=== PATIENT | male | born 1965 | race Hispanic/Latino ===

== ENCOUNTER 2016-12-28 15:43 | Emergency (ER) | payer BC ==
--- NOTE | 2016-12-28 16:31 | Emergency Department Report ---
Stated Complaint: ABD PAIN Time Seen by Provider: 12/28/16 16:26 - [facility] History of Present Illness: Patient is a 51-year-old male with a history of heart disease status posts heart surgery 2 years ago on Plavix and baby aspirin who presents to ED complaining of left upper quadrant abdominal pain 2 weeks. Patient states pain started off intermittently and now is constant. Patient describes pain as a pressure type pain that feels weird. Patient says nothing makes it worse and nothing makes it better. Patient states sometimes feels the pain going through to his back he rates the pain about a 4-10. Patient states he had no recent trauma or injury. Patient denies fever/chills/nausea/vomiting/diarrhea/dysuria/blood in urine/ chest pain/shortness of breath. - ROS Review of Systems: As noted in HPI - Exam Physical Exam: GENERAL: Alert and oriented x3, no apparent distress, Normal Gait, atraumatic. NECK: Supple. Non edematous, No carotid bruits. No lymphadenopathy or thyromegaly. LUNGS: Symetrical with respiration, No wheezing, no rales or crackles, CTAB. HEART: S1, S2 present, regular rate and rhythm without murmur, no rubs, no gallops. ABDOMEN: No organomegaly was noted,Positive bowel sounds, soft, and non- distended. . Nontender to palpation on all Quadrants, NO CVA tenderness. Upon palpation of the left upper quadrant patient states he feels weird. MSE screening note: Focused history and physical exam performed. Due to findings the following was ordered: ED Disposition for MSE Condition: Stable
[2016-12-28 17:43] LABS: Bilirubin,Urine NEG (Negative); Blood,Urine NEG (Negative); Ketones,Urine NEG (Negative); Leukocyte Esterase,Urine NEG (Negative); Mucus,Urine FEW /HPF; Nitrite,Urine NEG (Negative); Protein,Urine <15 mg/dL mg/dL (Negative); Urobilinogen,Urine < 2.0 mg/dL (<2.0); WBC,Urine < 1.0 /HPF (0.0-6.0)
[2016-12-28 17:56] LABS: Basophils % (Auto) 0.5 % (0.0-1.8); Eosinophils % (Auto) 2.5 % (0.0-4.3); Hematocrit 45.2 % (35.5-45.6); Hemoglobin 15.7 gm/dl (11.8-15.2); Mean Corpuscular HGB Conc 35 % (32-34); Mean Corpuscular Hemoglobin 32 pg (28-32); Mean Corpuscular Volume 92 fl (84-94); Platelet Count 249 K/mm3 (140-440); Red Blood Count 4.95 M/mm3 (3.65-5.03); Red Cell Distribution Width 13.6 % (13.2-15.2); White Blood Count 11.3 K/mm3 (4.5-11.0)
--- NOTE | 2016-12-28 17:57 | Cat Scan Report ---
FINAL REPORT EXAM: CT ABDOMEN PELVIS WO CON HISTORY: abd pain TECHNIQUE: Spiral CT scanning of the abdomen and pelvis. No oral or IV contrast administered. Multiplanar reformations. PRIORS: None. FINDINGS: Abdomen: Examination limited due to lack of contrast administration. Visualized lung bases grossly unremarkable. No radiopaque gallstones. Liver grossly unremarkable. Spleen grossly unremarkable. Pancreas grossly unremarkable. Kidneys grossly unremarkable. Adrenal glands grossly unremarkable. Pelvis: Bowel grossly unremarkable, with mild diverticular change in the sigmoid colon. Appendix within normal limits. No significant free peritoneal fluid or loculated fluid collection. Abdominal aorta non-aneurysmal. Degenerative change in the lumbosacral spine. IMPRESSION: 1. No acute findings.
[2016-12-28 18:01] LABS: Alanine Aminotransferase 14 units/L (7-56); Albumin 4.1 g/dL (3.9-5); Albumin/Globulin Ratio 1.5 %; Alkaline Phosphatase 113 units/L (35-129); Anion Gap 16 mmol/L; BUN/Creatinine Ratio 12.22; Bilirubin,Total 0.3 mg/dL (0.1-1.2); Blood Urea Nitrogen 11 mg/dL (9-20); Calcium 10.3 mg/dL (8.4-10.2); Carbon Dioxide 27 mmol/L (22-30); Chloride 100.3 mmol/L (98-107); Glucose 92 mg/dL (75-100); Lipase 18 units/L (13-60); Potassium 4.6 mmol/L (3.6-5.0); Sodium 139 mmol/L (137-145); Total Protein 6.9 g/dL (6.3-8.2)
[2016-12-28 20:45] VITALS: BP 120/79
--- NOTE | 2016-12-28 22:23 | Emergency Department Report ---
ED Abdominal Pain HPI - General Chief Complaint: Abdominal Pain Stated Complaint: ABD PAIN Time Seen by Provider: 12/28/16 16:26 Source: patient Mode of arrival: Ambulatory Limitations: No Limitations - History of Present Illness Initial Comments: 51-year-old male with a past medical history of asthma, CAD with stent and bypass surgery presents to the hospital with complaints of left upper quadrant abdominal pain for greater than 1 month. Pain has been intermittent and feels like a pressure. Positive belching and gas associated with the pain. Symptoms worse for the past 2 days. No specific aggravating or alleviating factors reported. Patient denies nausea, vomiting, diarrhea, fever, melena, or hematochezia. Patient states it deathly feels different from his previous cardiac related chest pain. - Related Data Home Medications Medication Instructions Recorded Confirmed Last Taken Clopidogrel Bisulfate [Plavix] 75 mg PO QDAY 12/28/16 12/28/16 Unknown Previous Rx's Medication Instructions Recorded Last Taken Type Aspirin [Aspirin BABY CHEW TAB] 81 mg PO QDAY tab.chew 01/29/15 Unknown Rx Mag Hydrox/Al Hydrox/Simeth 20 ml PO QID PRN #1 bottle 12/28/16 Unknown Rx [Maalox Advanced Suspension] Omeprazole Magnesium [PriLOSEC Otc] 20 mg PO QDAY #30 tablet. 12/28/16 Unknown Rx Allergies Allergy/AdvReac Type Severity Reaction Status Date / Time No Known Allergies Allergy Unverified 12/28/16 16:22 ED Review of Systems ROS: Stated complaint: ABD PAIN Other details as noted in HPI Comment: All other systems reviewed and negative Other: Constitutional: No fevers chills Eyes: No eye pain visual changes ENT: No ear pain or throat pain Neck: Denies pain Respiratory: Denies cough wheezing shortness of breath Cardiovascular: Denies chest pain, palpitations, syncope GI: Denies abdominal pain, nausea, vomiting, diarrhea : no dysuria Musculoskeletal: Denies back pain Skin: Denies rash, lesions, erythema Neurologic: Denies headache, numbness, weakness Psychiatric: Denies suicidal ideation, hallucinations ED Past Medical Hx - Past Medical History Hx Heart Attack/AMI: Yes (2011) Hx Asthma: Yes Hx HIV: No Additional medical history: CAD - Surgical History Hx Coronary Stent: Yes (X 2 2011) Additional Surgical History: DOUBLE HERNIA SURGERY. ROBOTIC BYPASS SURGERY. TONSILLECTOMY - Social History Smoking Status: Current Every Day Smoker Substance Use Type: None - Medications Home Medications: Home Medications Medication Instructions Recorded Confirmed Last Taken Type Aspirin [Aspirin BABY CHEW TAB] 81 mg PO QDAY tab.chew 01/29/15 12/28/16 Unknown Rx Clopidogrel Bisulfate [Plavix] 75 mg PO QDAY 12/28/16 12/28/16 Unknown History Mag Hydrox/Al Hydrox/Simeth 20 ml PO QID PRN #1 bottle 12/28/16 Unknown Rx [Maalox Advanced Suspension] Omeprazole Magnesium [PriLOSEC Otc] 20 mg PO QDAY #30 tablet. 12/28/16 Unknown Rx ED Physical Exam - General Limitations: No Limitations - Other Other exam information: General: No limitations, patient is alert in no acute distress Head exam: Atraumatic, normocephalic Eyes exam: Normal appearance, pupils equal reactive to light, nonicteric sclera ENT: Moist mucous membrane, normal oropharynx Neck exam: Normal inspection, full range of motion, no meningismus nontender Respiratory exam: Clear to auscultation bilateral, no wheezes, rales, crackles Cardiovascular: Normal rate and rhythm, normal heart sounds Abdomen: Soft, nondistended, and nontender, with normal bowel sounds, no rebound, or guarding. Extremity: Full range of motion normal inspection no deformity Back: Normal Inspection, full range of motion, no tenderness Neurologic: Alert, oriented x3, cranial nerves intact, no motor or sensory deficit Psychiatric: normal affect, normal mood Skin: Warm, dry, intact ED Course Vital Signs 12/28/16 12/28/16 12/28/16 16:20 20:40 20:45 Temperature 97.9 F Pulse Rate 102 H 80 Respiratory 17 13 16 Rate Blood Pressure 118/87 120/79 O2 Sat by Pulse 98 96 100 Oximetry ED Medical Decision Making - Lab Data Result diagrams: 12/28/16 17:15 12/28/16 17:15 Lab Results 12/28/16 12/28/16 12/28/16 Range/Units 16:54 17:15 17:15 WBC 11.3 H (4.5-11.0) K/mm3 RBC 4.95 (3.65-5.03) M/mm3 Hgb 15.7 H (11.8-15.2) gm/dl Hct 45.2 (35.5-45.6) % MCV 92 (84-94) fl MCH 32 (28-32) pg MCHC 35 H (32-34) % RDW 13.6 (13.2-15.2) % Plt Count 249 (140-440) K/mm3 Lymph % (Auto) 21.9 (13.4-35.0) % [place] % (Auto) 6.7 (0.0-7.3) % Eos % (Auto) 2.5 (0.0-4.3) % Baso % (Auto) 0.5 (0.0-1.8) % Lymph # 2.5 (1.2-5.4) K/mm3 [place] # 0.8 (0.0-0.8) K/mm3 Eos # 0.3 (0.0-0.4) K/mm3 Baso # 0.1 (0.0-0.1) K/mm3 Seg Neutrophils % 68.4 (40.0-70.0) % Seg Neutrophils # 7.7 (1.8-7.7) K/mm3 Sodium 139 (137-145) mmol/L Potassium 4.6 (3.6-5.0) mmol/L Chloride 100.3 (98-107) mmol/L Carbon Dioxide 27 (22-30) mmol/L Anion Gap 16 mmol/L BUN 11 (9-20) mg/dL Creatinine 0.9 (0.8-1.5) mg/dL Estimated GFR > 60 ml/min BUN/Creatinine Ratio 12.22 % Glucose 92 (75-100) mg/dL Calcium 10.3 H (8.4-10.2) mg/dL Total Bilirubin 0.3 (0.1-1.2) mg/dL AST 14 (5-40) units/L ALT 14 (7-56) units/L Alkaline Phosphatase 113 (35-129) units/L Total Protein 6.9 (6.3-8.2) g/dL Albumin 4.1 (3.9-5) g/dL Albumin/Globulin Ratio 1.5 % Lipase 18 (13-60) units/L Urine Color Straw (Yellow) Urine Turbidity Clear (Clear) Urine pH 6.0 (5.0-7.0) Ur Specific [place] 1.004 (1.003-1.030) Urine Protein <15 mg/dl (Negative) mg/dL Urine Glucose (UA) Neg (Negative) mg/dL Urine Ketones Neg (Negative) mg/dL Urine Blood Neg (Negative) Urine Nitrite Neg (Negative) Urine Bilirubin Neg (Negative) Urine Urobilinogen < 2.0 (<2.0) mg/dL Ur Leukocyte Esterase Neg (Negative) Urine WBC (Auto) < 1.0 (0.0-6.0) /HPF Urine RBC (Auto) 0.0 (0.0-6.0) /HPF Urine Mucus Few /HPF - Radiology Data Radiology results: report reviewed (CT abdomen and pelvis noncontrast: No acute findings) - Medical Decision Making Patient describes symptoms that are consistent with indigestion. He admits to increased pressure and belching. Will be prescribed a PPI and Maalox with simethicone for current symptoms. Outpatient follow-up will be encouraged. CT scan and labwork unremarkable for acute surgical or infectious pathology - Differential Diagnosis gastritis, indigestion, peptic ulcer disease Critical Care Time: No Critical care attestation.: If time is entered above; I have spent that time in minutes in the direct care of this critically ill patient, excluding procedure time. ED Disposition Clinical Impression: Indigestion Disposition: DISCHARGED TO HOME OR SELFCARE Is pt being admited?: No Does the pt Need Aspirin: No Condition: Stable Instructions: Chronic Indigestion (ED) Additional Instructions: Take the medication as prescribed. Follow-up with GI doctor provided. Return if symptoms worsen Prescriptions: Mag Hydrox/Al Hydrox/Simeth [Maalox Advanced Suspension] 20 ml PO QID PRN #1 bottle PRN Reason: Indigestion Omeprazole Magnesium [PriLOSEC Otc] 20 mg PO QDAY #30 tablet. Referrals: SAPNA CENTENO MD [Staff Physician] - 3-5 Days (GI doctor ) Time of Disposition: 22:23
== END 2016-12-28 22:33 | disposition home or self-care (01) ==
LOC: ED 15:43
DX: K30 Functional dyspepsia (principal); I25.2 Old myocardial infarction; J45.909 Unspecified asthma, uncomplicated; I25.10 Atherosclerotic heart disease of native coronary artery without angina pectoris; F17.200 Nicotine dependence, unspecified, uncomplicated; Z79.82 Long term (current) use of aspirin
CPT/HCPCS: 36415; 74176; 80053; 81001; 83690; 85025

== ENCOUNTER 2017-12-24 08:32 | Outpatient (CLI) | payer OTHER ==
--- NOTE | 2017-12-24 08:53 | XRay Report ---
XRAY LEFT SHOULDER THREE VIEWS: 12/24/17 08:32:00 CLINICAL: Left shoulder pain. FINDINGS: No fracture or dislocation. Normal glenohumeral joint. Mild acromioclavicular joint arthritis. The soft tissues are normal. IMPRESSION: Mild acromioclavicular joint arthritis and otherwise normal.
== END 2017-12-24 08:33 | disposition home or self-care (01) ==
LOC: SPVIMAG 08:32
PROVIDERS: ATTEND Orthopaedic Surgery
DX: M19.012 Primary osteoarthritis, left shoulder (principal)

== ENCOUNTER 2021-04-29 11:55 | Inpatient (IN) | payer OTHER ==
--- NOTE | 2021-04-29 12:08 | Event Note ---
ED Screening Note Date of service: 04/29/21 Time: 12:07 ED Screening Note: 55-year-old male with a history of KS and CABG presents to the emergency room for acute chest pain that started 15 minutes while at work. Patient complains of dizziness. Complains of shortness of breath. This initial assessment/diagnostic orders/clinical plan/treatment(s) is/are subject to change based on patients health status, clinical progression and re- assessment by fellow clinical providers in the ED. Further treatment and workup at subsequent clinical providers discretion. Patient/guardian urged not to elope from the ED as their condition may be serious if not clinically assessed and managed. Initial orders include: Chest pain protocol has been ordered Charge nurse has been notified the patient needs to be seen immediately EKG has been done and taken to Dr. Goldberg to evaluation.
--- NOTE | 2021-04-29 12:12 | Event Note ---
Date: 04/29/21 EKG interpreted at 12: 00 Sinus rhythm, rate 83 bpm, rightward axis deviation, QTC 45 ms, incomplete right bundle branch block, ST depression V3, V4, V5. This is an abnormal EKG. This is not a STEMI. Nonspecific changes when compared to prior EKG. The patient is having intermittent chest pain. The EKG is transmitted to our coding assistant, Dr. Avis Kothari, who has evaluated the patient's EKG from today, and a previous EKG from 2017. He advises that emergent activation a cardiac catheterization lab is not indicated, and that this patient's current EKG is not suggestive of diagnostic posterior wall NH. He does advise that with a new right bundle branch block, pulmonary embolism is on the differential diagnosis. This patient was brought back to the main emergency room as soon as possible.
--- NOTE | 2021-04-29 12:37 | Emergency Department Report ---
ED Chest Pain HPI - General Chief Complaint: Chest Pain Stated Complaint: Left-sided chest pain PUI?: No Time Seen by Provider: 04/29/21 12:25 Source: patient, RN notes reviewed, old records reviewed Mode of arrival: Ambulatory Limitations: No Limitations - History of Present Illness Initial Comments: Cardiology: [facility] cardiology/Dr. Juliana Herzog Past medical history: Ischemic heart disease, stent, CABG, currently on aspirin and Plavix. Hypertension, high cholesterol, tobacco use, not Covid vaccinated. Both father and brother had premature myocardial infarctions. Patient is a 55-year-old gentleman who presents to the ER today with complaint of nontraumatic chest pain. The chest pain is left-sided and radiates to the back. It is intermittent. Currently, the patient is chest pain-free. He has been taking aspirin and Plavix. He denies travel, surgery, leg pain, leg swelling, DVT and pulmonary embolism risk factors. He has not taken erectile dysfunction medications recently. He denies Covid symptomatology. He denies additional injuries. He denies additional complaints. He states he feels like he is at his baseline at this time. MD Complaint: chest pain -: Sudden (Last night), minutes(s) Onset: during rest Pain Location: left chest Pain Radiation: back Severity: moderate Quality: aching Consistency: intermittent Improves With: nothing Worsens With: nothing Aspirin use within the Past 7 Days: (1) Yes - Related Data On Oral Contraceptives: No Home Medications Medication Instructions Recorded Confirmed Last Taken AtorvaSTATin [Lipitor] 20 mg PO DAILY 01/17/17 01/17/17 01/16/17 Previous Rx's Medication Instructions Recorded Last Taken Type Aspirin [Aspirin BABY CHEW TAB] 81 mg PO QDAY tab.chew 01/29/15 01/16/17 Rx Metoprolol Tartrate [Lopressor] 12.5 mg PO BID #60 tablet 01/18/17 Unknown Rx Ticagrelor [Brilinta] 90 mg PO BID #180 tablet 01/18/17 Unknown Rx Allergies Allergy/AdvReac Type Severity Reaction Status Date / Time Penicillins Allergy Shortness Unverified 01/17/17 06:36 of Breath Heart Score - HEART Score History: Moderately suspicious EKG: Significant ST-depression Age: 45-65 Risk factors: > 3 risk factors or hx of atherosclerotic disease Troponin: < normal limit HEART Score: 6 - EKG Read Time Time EKG Completed: 12:00 EKG Read Time: 12:00 - Critical Actions Critical Actions: 4-6 pts:12-16.6% risk of adverse cardiac event. Should be admitted ED Review of Systems ROS: Stated complaint: CHEST PAINS/DIZZY Other details as noted in HPI Constitutional: denies: diaphoresis, fever Eyes: denies: eye discharge ENT: denies: epistaxis Respiratory: denies: cough, wheezing Cardiovascular: chest pain Gastrointestinal: denies: nausea, vomiting, hematemesis, melena, hematochezia Genitourinary: denies: dysuria Musculoskeletal: back pain Neurological: weakness Hematological/Lymphatic: denies: easy bleeding ED Past Medical Hx - Past Medical History Hx Hypertension: Yes Hx Heart Attack/AMI: Yes (2011) Hx Congestive Heart Failure: No Hx Diabetes: No Hx Asthma: Yes Hx COPD: No Hx HIV: No Additional medical history: CAD - Surgical History Hx Coronary Stent: Yes (X 2 2011) Hx Open Heart Surgery: Yes Additional Surgical History: DOUBLE HERNIA SURGERY. ROBOTIC BYPASS SURGERY. TONSILLECTOMY - Social History Smoking Status: Current Every Day Smoker - Medications Home Medications: Home Medications Medication Instructions Recorded Confirmed Last Taken Type Aspirin [Aspirin BABY CHEW TAB] 81 mg PO QDAY tab.chew 01/29/15 01/17/17 01/16/17 Rx AtorvaSTATin [Lipitor] 20 mg PO DAILY 01/17/17 01/17/17 01/16/17 History Metoprolol Tartrate [Lopressor] 12.5 mg PO BID #60 tablet 01/18/17 Unknown Rx Ticagrelor [Brilinta] 90 mg PO BID #180 tablet 01/18/17 Unknown Rx ED Physical Exam - General Limitations: No Limitations General appearance: alert, in no apparent distress - Head Head exam: Present: atraumatic, normocephalic - Eye Eye exam: Present: normal appearance, EOMI. Absent: nystagmus - ENT ENT exam: Present: normal exam, normal orophraynx, mucous membranes moist, normal external ear exam - Neck Neck exam: Present: normal inspection, full ROM. Absent: tenderness, meningismus - Respiratory Respiratory exam: Present: normal lung sounds bilaterally. Absent: respiratory distress, wheezes, rales, rhonchi, stridor, decreased breath sounds - Cardiovascular Cardiovascular Exam: Present: regular rate, normal rhythm, normal heart sounds. Absent: bradycardia, tachycardia, irregular rhythm, systolic murmur, diastolic murmur, rubs, gallop - GI/Abdominal GI/Abdominal exam: Present: soft. Absent: distended, tenderness, guarding, rebound, rigid, pulsatile mass - Rectal Rectal exam: Present: deferred - Extremities Exam Extremities exam: Present: normal inspection, full ROM, other (2+ pulses noted in the bilateral upper and lower extremities. There is no palpable cord. negative Homans sign. Muscular compartments are soft. The pelvis is stable.). Absent: pedal edema, calf tenderness - Back Exam Back exam: Present: normal inspection, full ROM. Absent: tenderness, CVA tenderness (R), CVA tenderness (L), paraspinal tenderness, vertebral tenderness - Neurological Exam Neurological exam: Present: alert, oriented X3, normal gait, other (No facial droop. Tongue midline. Extraocular movements intact bilaterally. Facial sensation intact to light touch in V1, V2, V3 distribution bilaterally. 5 and a 5 strength in 4 extremities. Sensation intact to light touch in 4 extremities.). Absent: motor sensory deficit - Psychiatric Psychiatric exam: Present: normal affect, normal mood - Skin Skin exam: Present: warm, dry, intact, normal color. Absent: rash ED Course Vital Signs 04/29/21 04/29/21 11:59 12:45 Temperature 97.5 F L Pulse Rate 100 H 78 Respiratory 18 19 Rate Blood Pressure 179/102 121/88 [Left] O2 Sat by Pulse 100 100 Oximetry - Reevaluation(s) Reevaluation #1: 04/29/21 13:05 Differential diagnosis, including but not limited to: Acute coronary syndrome, GERD, gastritis, hiatal hernia, pneumonia, pulmonary embolism Assessment and plan: 55-year-old gentleman, who is not currently tachycardic, ta chypneic or hypoxic, has resolved tachycardia, who denies DVT and pulmonary embolism risk factors, who is low risk by Wells criteria for pulmonary embolism, presenting to the ER with resolved intermittent chest pain, abnormal EKG, chest pain-free at this time. Patient at moderate risk for major adverse cardiac event as per heart score. Have reached out to [facility] cardiology on- call, Mukund Lynn, working with Dr Jameson Cardiology currently at the bedside assessing this patient. Patient states he is pain-free at this time. Have sent appropriate laboratory studies, including D-dimer. Have recommended admission to the medical service for accelerated cardiac risk ratification. Patient is agreeable to this plan of care. Laboratory studies pending, cardiology recommendations pending at this time. 04/29/21 13:32 Troponin negative. D-dimer negative. Cardiology recommends admission. Hospital physician, Dr. Juliana Donaldson to admit to [facility] Patient took aspirin this morning. Patient is chest pain-free at this time. Reevaluation #2: 04/29/21 13:37 Patient sitting comfortably in stretcher. Does not appear to be in any acute distress. Updated on plan of care. He is agreeable. He states he is having some discomfort. Have ordered nitroglycerin, 162 of aspirin; he took 162 of aspirin this morning. Have also ordered fluids, and morphine. Have requested that nursing team repeat EKG. Reevaluation #3: 04/29/21 13:58 EKG #2, interpreted at 13: 49 Sinus rhythm, rate 62 bpm. Right bundle branch block, borderline extreme rightward axis deviation. Persistent right bundle branch block, however, ST depression appears to be improved. This EKG is not a STEMI GONZALO score - Gonzalo Score Age > 65: (0) No Aspirin use within the Past 7 Days: (1) Yes 3 or more CAD Risk Factors: (1) Yes 2 or more Angina events in past 24 hrs: (1) Yes Known CAD with more than 50% Stenosis: (1) Yes Elevated Cardiac Markers: (0) No ST Deviation Greater than 0.5mm: (1) Yes GONZALO Score: 5 ED Medical Decision Making - Lab Data Result diagrams: 04/29/21 12:38 04/29/21 12:38 Vital Signs 04/29/21 04/29/21 11:59 12:45 Temperature 97.5 F L Pulse Rate 100 H 78 Respiratory 18 19 Rate Blood Pressure 179/102 121/88 [Left] O2 Sat by Pulse 100 100 Oximetry Lab Results 04/29/21 04/29/21 04/29/21 Range/Units 12:38 12:38 12:38 WBC 7.1 (4.5-11.0) K/mm3 RBC 4.87 (3.65-5.03) M/mm3 Hgb 16.0 H (11.8-15.2) gm/dl Hct 45.9 H (35.5-45.6) % MCV 94 (84-94) fl MCH 33 H (28-32) pg MCHC 35 H (32-34) % RDW 13.3 (13.2-15.2) % Plt Count 259 (140-440) K/mm3 Lymph % (Auto) 29.1 (13.4-35.0) % [place] % (Auto) 7.3 (0.0-7.3) % Eos % (Auto) 3.9 (0.0-4.3) % Baso % (Auto) 1.0 (0.0-1.8) % Lymph # (Auto) 2.1 (1.2-5.4) K/mm3 [place] # (Auto) 0.5 (0.0-0.8) K/mm3 Eos # (Auto) 0.3 (0.0-0.4) K/mm3 Baso # (Auto) 0.1 (0.0-0.1) K/mm3 Seg Neutrophils % 58.7 (40.0-70.0) % Seg Neutrophils # 4.2 (1.8-7.7) K/mm3 PT 13.5 (12.2-14.9) Sec. INR 0.98 (0.87-1.13) APTT 30.6 (24.2-36.6) Sec. D-Dimer 202.38 (0-234) ng/mlDDU Sodium 134 L (137-145) mmol/L Potassium 4.1 (3.6-5.0) mmol/L Chloride 100.4 (98-107) mmol/L Carbon Dioxide 24 (22-30) mmol/L Anion Gap 14 mmol/L BUN 7 L (9-20) mg/dL Creatinine 0.7 L (0.8-1.3) mg/dL Estimated GFR > 60 ml/min BUN/Creatinine Ratio 10 % Glucose 89 (75-100) mg/dL Calcium 9.5 (8.4-10.2) mg/dL Total Bilirubin 0.40 (0.1-1.2) mg/dL AST 13 (5-40) units/L ALT 10 (7-56) units/L Alkaline Phosphatase 138 H (35-129) units/L Troponin T < 0.010 (0.00-0.029) ng/mL Total Protein 6.9 (6.3-8.2) g/dL Albumin 4.3 (3.9-5) g/dL Albumin/Globulin Ratio 1.7 % - EKG Data -: EKG Interpreted by Me EKG shows normal: sinus rhythm - EKG Data 04/29/21 13:04 EKG #1 is interpreted at 12: 00 p.m. Sinus rhythm, with a rightward axis deviation. There is a right bundle branch block. ST depression in V3, V4. This is an abnormal EKG. This is not a STEMI. The QTC is 45 ms. The EKG shows nonspecific changes when compared to prior EKG from 17 January 2017. - Radiology Data Radiology results: report reviewed, image reviewed [facility] [address] [place] [address] XRay Report Signed Patient: ANGEL LUIS LITTLE MR#: [id number] : 1965 Acct:[id number] Age/Sex: 55 / M ADM Date: 04/29/21 Loc: ED Attending Dr: Ordering Physician: GUEVARA ESPINO Date of Service: 04/29/21 Procedure(s): XR chest routine 2V Accession Number(s): [id number] cc: GUEVARA ESPINO Fluoro Time In Minutes: CHEST 2 VIEWS INDICATION / CLINICAL INFORMATION: Chest Pain. COMPARISON: 01/18/17. FINDINGS: SUPPORT DEVICES: None. HEART / MEDIASTINUM: The heart is normal in size. Unusual left heart border contour is chronic and unchanged. There are multiple coronary artery stents. Pulmonary vasculature is normal and the aorta is normal in caliber. LUNGS / PLEURA: No significant pulmonary or pleural abnormality. No pneumothorax. ADDITIONAL FINDINGS: No significant additional findings. IMPRESSION: No acute abnormality or significant change. Signer Name: Juan Mallory MD Signed: 04/29/2021 12:38 PM Workstation Name: [id number] Transcribed By: RT Dictated By: Juan Mallory MD Electronically Authenticated By: Juan Mallory MD Signed Date/Time: 04/29/21 1238 Critical Care Time: Yes Critical care time in (mins) excluding proc time.: 35 Critical care attestation.: If time is entered above; I have spent that time in minutes in the direct care of this critically ill patient, excluding procedure time. ED Disposition Clinical Impression: CAD (coronary artery disease), Unstable angina Disposition: OP ADMIT IP TO THIS HOSP Is pt being admited?: Yes Does the pt Need Aspirin: No (Patient took aspirin this morning) Condition: Good Instructions: Angina, [id number] Referrals: PRIMARY CARE,MD [Primary Care Provider] - 3-5 Days
--- NOTE | 2021-04-29 12:42 | XRay Report ---
CHEST 2 VIEWS INDICATION / CLINICAL INFORMATION: Chest Pain. COMPARISON: 01/18/17. FINDINGS: SUPPORT DEVICES: None. HEART / MEDIASTINUM: The heart is normal in size. Unusual left heart border contour is chronic and un changed. There are multiple coronary artery stents. Pulmonary vasculature is normal and the aorta is normal in caliber. LUNGS / PLEURA: No significant pulmonary or pleural abnormality. No pneumothorax. ADDITIONAL FINDINGS: No significant additional findings. IMPRESSION: No acute abnormality or significant change. Signer Name: Juan Mallory MD Signed: 04/29/2021 12:38 PM Workstation Name: [id number]
[2021-04-29 13:14] LABS: Alanine Aminotransferase 10 units/L (7-56); Albumin 4.3 g/dL (3.9-5); Basophils # (Auto) 0.1 K/mm3 (0.0-0.1); Blood Urea Nitrogen 7 mg/dL (9-20); Calcium 9.5 mg/dL (8.4-10.2); Eosinophils # (Auto) 0.3 K/mm3 (0.0-0.4); Eosinophils % (Auto) 3.9 % (0.0-4.3); Hematocrit 45.9 % (35.5-45.6); Hemolysis Index 18; Lymphocytes # (Auto) 2.1 K/mm3 (1.2-5.4); Lymphocytes % (Auto) 29.1 % (13.4-35.0); Mean Corpuscular HGB Conc 35 % (32-34); Mean Corpuscular Volume 94 fl (84-94); Monocytes # (Auto) 0.5 K/mm3 (0.0-0.8); Monocytes % (Auto) 7.3 % (0.0-7.3); Platelet Count 259 K/mm3 (140-440); Red Blood Count 4.87 M/mm3 (3.65-5.03); Red Cell Distribution Width 13.3 % (13.2-15.2)
[2021-04-29 13:20] LABS: BUN/Creatinine Ratio 10
[2021-04-29 13:27] LABS: INR 0.98 (0.87-1.13); Partial Thromboplastin Time 30.6 Sec. (24.2-36.6)
[2021-04-29] MEDS ORDERED: SODIUM CHLORIDE 0.9% 500 ML 500 ML IV ONE (13:36)
[2021-04-29] MEDS ORDERED: ASPIRIN 81 MG TAB CHEW PO ONE (13:36)
[2021-04-29] MEDS ORDERED: MORPHINE 4 MG/1 ML INJ IV ONE (13:36)
[2021-04-29] MEDS: NITROGLYCERIN 0.4 MG TAB SUBL SL PRN (14:05)
[2021-04-29] MEDS ORDERED: SODIUM CHLORIDE 0.9% 500 ML 500 ML IV SCH (15:00)
--- NOTE | 2021-04-29 15:04 | Consultation ---
History of Present Illness Consult date: 04/29/21 Requesting physician: ADDIS MORRISSEY Consult reason: chest pain History of present illness: Patient is 55 y/o male with a pmhx of ischemic heart disease s/p stent 2017, CABG(2014 per patient) on DAPT, HLD who presented to the ED with complaint of intermittent chest pain that has been ongoing for 2 weeks. He reports that he went to [place] last week but left the ED before being seen due to the wait. P ham reports that as of yesterday the pain had become worse and that he had to come to the hospital. He describes the pain as a deep ache and rates it 8/10 that radiates to his back and shoulder. The patient says the pain can come go and whether he is at rest or exerting himself. He states that the pain occurs more when he is exerting himself. He also states that his blood pressure has also been increased in the last 2 weeks. He reports SOB with exertion, palpitations, diaphoresis and lightheadedness. He denies any nausea and vomiting. The patient is followed by Dr. Herzog in the office. Echo 06/2020- EF 50-55%, normal LV size, normal diastolic function, global RV hypokinesis, and RVSF moderately reduced LHC 06/2020- subtotal occlusion of LAD, PARK to LAD patent with excellent runoff, RCA subtotally occluded distally. There is a mid in-stent 80% restenosis and a proximal/ostial 60-70% in stent restenosis Past History Past Medical History: CAD, hypertension Past Surgical History: CABG Social history: smoking Family history: CAD Medications and Allergies Allergies Allergy/AdvReac Type Severity Reaction Status Date / Time Penicillins Allergy Shortness Unverified 01/17/17 06:36 of Breath Home Medications Medication Instructions Recorded Confirmed Last Taken Type Aspirin [Aspirin BABY CHEW TAB] 81 mg PO QDAY tab.chew 01/29/15 01/17/17 01/16/17 Rx AtorvaSTATin [Lipitor] 20 mg PO DAILY 01/17/17 01/17/17 01/16/17 History Metoprolol Tartrate [Lopressor] 12.5 mg PO BID #60 tablet 01/18/17 Unknown Rx Ticagrelor [Brilinta] 90 mg PO BID #180 tablet 01/18/17 Unknown Rx Active Meds: Active Medications Aspirin (Aspirin Ec 325 Mg Tab) 325 mg PO ONCE ONE Stop: 05/02/21 06:01 Aspirin (Aspirin 81 Mg Tab Chew) 81 mg PO QDAY [facility] Stop: 05/01/21 22:00 Clopidogrel Bisulfate (Clopidogrel 75 Mg Tab) 75 mg PO QDAY [facility] Sodium Chloride (Nacl 0.9% 500 Ml) 500 mls @ 50 mls/hr IV DIRECT TITO Stop: 04/30/21 00:59 Metoprolol Succinate (Metoprolol Succinate Xl 50 Mg Tab) 50 mg PO QDAY [facility] Nitroglycerin (Nitroglycerin 0.4 Mg Tab Subl) 0.4 mg SL .Q5MIN PRN PRN Reason: Chest Pain Last Admin: 04/29/21 14:05 Dose: 0.4 mg Documented by: Review of Systems All systems: negative Constitutional: no weight loss, no weight gain, no fever, no chills Ears, nose, mouth and throat: no ear pain, no ear discharge, no tinnitis Cardiovascular: chest pain, palpitations, lightheadedness, shortness of breath, dyspnea on exertion, no orthopnea Respiratory: dyspnea on exertion, no cough, no cough with sputum, no excessive sputum, no hemoptysis Gastrointestinal: no abdominal pain, no nausea, no vomiting, no diarrhea, no constipation Musculoskeletal: low back pain, no neck stiffness, no neck pain Integumentary: no rash, no pruritis, no redness, no sores Neurological: no head injury, no transient paralysis, no paralysis, no weakness, no parathesias Psychiatric: no anxiety, no memory loss Endocrine: no cold intolerance, no heat intolerance Hematologic/Lymphatic: no easy bruising, no easy bleeding Physical Examination Last Vital Signs Temp 97.5 F L 04/29/21 11:59 Pulse 64 04/29/21 14:55 Resp 19 04/29/21 14:55 BP 121/88 04/29/21 14:55 Pulse Ox 99 04/29/21 14:55 General appearance: no acute distress HEENT: Positive: PERRL Neck: Positive: trachea midline Cardiac: Positive: Reg Rate and Rhythm, S1/S2 Lungs: Positive: clear to auscultation, Normal Breath Sounds Neuro: Positive: Grossly Intact Abdomen: Positive: Soft, Active Bowel Sounds Skin: Negative: Rash, Suspicious Lesions, Ulceration Extremities: Present: upper extr. pulses, lower extr. pulses. Absent: edema Results 04/29/21 12:38 04/29/21 12:38 Cardiac Enzymes 04/29/21 Range/Units 12:38 AST 13 (5-40) units/L Coagulation 04/29/21 Range/Units 12:38 PT 13.5 (12.2-14.9) Sec. INR 0.98 (0.87-1.13) APTT 30.6 (24.2-36.6) Sec. CBC 04/29/21 Range/Units 12:38 WBC 7.1 (4.5-11.0) K/mm3 RBC 4.87 (3.65-5.03) M/mm3 Hgb 16.0 H (11.8-15.2) gm/dl Hct 45.9 H (35.5-45.6) % Plt Count 259 (140-440) K/mm3 Lymph # (Auto) 2.1 (1.2-5.4) K/mm3 [place] # (Auto) 0.5 (0.0-0.8) K/mm3 Eos # (Auto) 0.3 (0.0-0.4) K/mm3 Baso # (Auto) 0.1 (0.0-0.1) K/mm3 Comprehensive Metabolic Panel 04/29/21 Range/Units 12:38 Sodium 134 L (137-145) mmol/L Potassium 4.1 (3.6-5.0) mmol/L Chloride 100.4 (98-107) mmol/L Carbon Dioxide 24 (22-30) mmol/L BUN 7 L (9-20) mg/dL Creatinine 0.7 L (0.8-1.3) mg/dL Glucose 89 (75-100) mg/dL Calcium 9.5 (8.4-10.2) mg/dL AST 13 (5-40) units/L ALT 10 (7-56) units/L Alkaline Phosphatase 138 H (35-129) units/L Total Protein 6.9 (6.3-8.2) g/dL Albumin 4.3 (3.9-5) g/dL - Imaging and Cardiology Echo: report reviewed Cardiac cath: report reviewed EKG: report reviewed, image reviewed EKG interpretations - Telemetry EKG Rhythm: Sinus Rhythm - EKG Sinus rhythms and dysrhythmias: sinus rhythm AV and intraventricular conduction: right bundle branch block Assessment and Plan Unstable angina/CAD * EKG shows normal sinus rhythm with a RBBB with a rate of 83, no acute ischemic changes. Troponins neg x1. Repeat troponins pending * Echo 06/2020- EF 50-55%, normal LV size, normal diastolic function, global RV hypokinesis, and RVSF moderately reduced * [facility] 06/2020- subtotal occlusion of LAD, PARK to LAD patent with excellent runoff, RCA subtotally occluded distally. There is a mid in-stent 80% restenosis and a proximal/ostial 60-70% in stent restenosis * Patient is on DAPT with aspirin/Plavix. Continue DAPT * Echo pending * Plan for cardiac cath on Sunday * Drug screen results pending HTN * Optimize hypertensive regimen metoprolol 25mg XL Plan for cardiac cath on . Patient seen in conjunction with Dr. Jameson who agrees with this plan of care. We will continue to follow - Patient Problems (1) Hypertension Current Visit: Yes Status: Acute (2) Unstable angina Current Visit: Yes Status: Acute (3) CAD (coronary artery disease) Current Visit: Yes Status: Chronic (4) Chest pain Current Visit: No Status: Acute (5) Tobacco abuse Current Visit: No Status: Chronic
[2021-04-29] MEDS: CLOPIDOGREL 75 MG TAB PO SCH ×2 (15:26→15:29)
[2021-04-29] MEDS: METOPROLOL SUCCINATE XL 50 MG TAB PO SCH ×2 (15:26→15:29)
--- NOTE | 2021-04-29 18:06 | Electrocardiograph Report ---
[facility] Test Date: 2021-04-29 Test Time: 12:00:25 Pat Name: ANGEL LUIS LITTLE Department: Room: [facility] Gender: M Shellfish Manager: JEAN PAUL : 1965 Requested By: FARRAH PALOMARES Order Number: [id number] Reading MD: Edwin Jameson Measurements Intervals [place] Rate: 83 P: 63 ME: 141 QRS: -52 QRSD: 155 T: 17 QT: 413 QTc: 485 Interpretive Statements Sinus rhythm Right bundle branch block Inferior infarct, old ST depressions in precordial leads,consider ischemia. No previous ECG available for comparison Electronically Signed On 04-29-2021 18:06:00 EDT by Edwin Jameson
[2021-04-29] MEDS ORDERED: ACETAMINOPHEN 325 MG TAB PO PRN (18:17)
[2021-04-29] MEDS ORDERED: ONDANSETRON 4 MG/2 ML INJ IV PRN (18:17)
--- NOTE | 2021-04-29 19:03 | History and Physical Report ---
History of Present Illness Date of examination: 04/29/21 Date of admission: 04/29/21 13:33 Chief complaint: Chest pain for 1 day History of present illness: 45-year-old male with multiple medical problems including coronary artery disease status post CABG stent and CABG and ischemic heart disease with high cholesterol and tobacco use comes in for left-sided chest pain. Chest pain is intermittent in nature. Going on for the last 24 hours. Chest pain is in natur e. 6 on a scale of 1-10. No exacerbating or leading factors. No orthopnea or shortness of breath. Heart Score - HEART Score History: Moderately suspicious EKG: Significant ST-depression Age: 45-65 Risk factors: > 3 risk factors or hx of atherosclerotic disease Troponin: < normal limit HEART Score: 6 - EKG Read Time Time EKG Completed: 12:00 EKG Read Time: 12:00 - Critical Actions Critical Actions: 4-6 pts:12-16.6% risk of adverse cardiac event. Should be admitted - Past Medical History --Hypertension: Yes --Heart Attack/AMI: Yes (2011) --Asthma: Yes --Additional medical history: CAD - Surgical History --Coronary Stent: Yes (X 2 2011) --Open Heart Surgery: Yes --Additional Surgical History: DOUBLE HERNIA SURGERY. ROBOTIC BYPASS SURGERY. TONSILLECTOMY - Social History Smoking Status: Current Every Day Smoker - Medications Home Medications: Home Medications Medication Instructions Recorded Confirmed Last Taken Type Aspirin [Aspirin BABY CHEW TAB] 81 mg PO QDAY tab.chew 01/29/15 01/17/1712/30 Rx AtorvaSTATin [Lipitor] 20 mg PO DAILY 01/17/17 01/17/17 01/16/17 History Metoprolol Tartrate [Lopressor] 12.5 mg PO BID #60 tablet 01/18/17 Unknown Rx Ticagrelor [Brilinta] 90 mg PO BID #180 tablet 01/18/17 Unknown Rx Review of Systems ROS: Stated complaint: CHEST PAINS/DIZZY Other details as noted in HPI Constitutional: denies: diaphoresis, fever Eyes: denies: eye discharge ENT: denies: epistaxis Respiratory: denies: cough, wheezing Cardiovascular: chest pain Gastrointestinal: denies: nausea, vomiting, hematemesis, melena, hematochezia Genitourinary: denies: dysuria Musculoskeletal: back pain Neurological: weakness Hematological/Lymphatic: denies: easy bleeding Past History Past Medical History: CAD, hypertension Past Surgical History: CABG Social history: smoking Family history: CAD Medications and Allergies Allergies Allergy/AdvReac Type Severity Reaction Status Date / Time Penicillins Allergy Shortness Unverified 01/17/17 06:36 of Breath Home Medications Medication Instructions Recorded Confirmed Last Taken Type Aspirin [Aspirin BABY CHEW TAB] 81 mg PO QDAY tab.chew 01/29/15 04/29/21 04/29/21 Rx Metoprolol Tartrate [Lopressor] 25 mg PO BID 04/29/21 04/29/21 04/29/21 History Active Meds: Active Medications Acetaminophen (Acetaminophen 325 Mg Tab) 650 mg PO Q4H PRN PRN Reason: Pain MILD(1-3)/Fever >100.5/SANCHEZ Aspirin (Aspirin Ec 325 Mg Tab) 325 mg PO ONCE ONE Stop: 05/02/21 06:01 Aspirin (Aspirin 81 Mg Tab Chew) 81 mg PO QDAY [facility] Stop: 05/01/21 22:00 Clopidogrel Bisulfate (Clopidogrel 75 Mg Tab) 75 mg PO QDAY [facility] Last Admin: 04/29/21 15:29 Dose: Not Given Documented by: Famotidine (Famotidine 20 Mg/2 Ml Inj) 20 mg IV BID [facility] Heparin Sodium (Porcine) (Heparin 5,000 Unit/1 Ml Vial) 5,000 unit SUB-Q Q12HR [facility]ITO Hydromorphone HCl (Hydromorphone 1 Mg/1 Ml Inj) 0.5 mg IV Q3H PRN PRN Reason: Pain , Severe (7-10) Sodium Chloride (Nacl 0.9% 500 Ml) 500 mls @ 50 mls/hr IV DIRECT [facility] Stop: 04/30/21 00:59 Sodium Chloride (Nacl 0.9% 1000 Ml) 1,000 mls @ 75 mls/hr IV DIRECT [facility]IT[facility] Stop: 04/30/21 08:00 Metoprolol Succinate (Metoprolol Succinate Xl 50 Mg Tab) 50 mg PO QDAY [facility] Last Admin: 04/29/21 15:29 Dose: Not Given Documented by: Nitroglycerin (Nitroglycerin 0.4 Mg Tab Subl) 0.4 mg SL .Q5MIN PRN PRN Reason: Chest Pain Last Admin: 04/29/21 14:05 Dose: 0.4 mg Documented by: Ondansetron HCl (Ondansetron 4 Mg/2 Ml Inj) 4 mg IV Q8H PRN PRN Reason: Nausea And Vomiting Oxycodone/Acetaminophen (Oxycodone /Acetaminophen 5-325mg Tab) 1 tab PO Q6H PRN PRN Reason: Pain, Moderate (4-6) Sodium Chloride (Sodium Chloride 0.9% 10 Ml Flush Syringe) 10 ml IV BID TITO Sodium Chloride (Sodium Chloride 0.9% 10 Ml Flush Syringe) 10 ml IV PRN PRN PRN Reason: LINE FLUSH Exam - Constitutional Vitals: Temp Pulse Resp BP Pulse Ox 97.5 F L 71 19 141/81 98 04/29/21 11:59 04/29/21 18:11 04/29/21 18:11 04/29/21 18:11 04/29/21 18:11 General appearance: Present: no acute distress, well-nourished - EENT Eyes: Present: PERRL ENT: hearing intact, clear oral mucosa - Neck Neck: Present: supple, normal ROM - Respiratory Respiratory effort: normal Respiratory: bilateral: CTA - Cardiovascular Heart rate: 72 Rhythm: regular Heart Sounds: Present: S1 & S2. Absent: rub, click - Extremities Extremities: pulses symmetrical, No edema Peripheral Pulses: within normal limits - Abdominal General gastrointestinal: Present: soft, non-tender, non-distended, normal bowel sounds Male genitourinary: Present: normal - Integumentary Integumentary: Present: clear, warm, dry - Musculoskeletal Musculoskeletal: gait normal, strength equal bilaterally - Psychiatric Psychiatric: appropriate mood/affect, intact judgment & insight - Neurologic Neurologic: CNII-XII intact, moves all extremities HEART Score - HEART Score EKG: Significant ST-depression Age: 45-65 Risk factors: > 3 risk factors or hx of atherosclerotic disease Troponin: Troponin T < 0.010 ng/mL (0.00-0.029) 04/29/21 17:29 Troponin: < normal limit - Critical Actions Critical Actions: 4-6 pts:12-16.6% risk of adverse cardiac event. Should be admitted Results - Labs CBC & Chem 7: 04/30/21 06:02 04/30/21 06:02 Labs: Laboratory Last Values WBC 7.1 K/mm3 (4.5-11.0) 04/29/21 12:38 RBC 4.87 M/mm3 (3.65-5.03) 04/29/21 12:38 Hgb 16.0 gm/dl (11.8-15.2) H 04/29/21 12:38 Hct 45.9 % (35.5-45.6) H 04/29/21 12:38 MCV 94 fl (84-94) 04/29/21 12:38 MCH 33 pg (28-32) H 04/29/21 12:38 MCHC 35 % (32-34) H 04/29/21 12:38 RDW 13.3 % (13.2-15.2) 04/29/21 12:38 Plt Count 259 K/mm3 (140-440) 04/29/21 12:38 Lymph % (Auto) 29.1 % (13.4-35.0) 04/29/21 12:38 [place] % (Auto) 7.3 % (0.0-7.3) 04/29/21 12:38 Eos % (Auto) 3.9 % (0.0-4.3) 04/29/21 12:38 Baso % (Auto) 1.0 % (0.0-1.8) 04/29/21 12:38 Lymph # (Auto) 2.1 K/mm3 (1.2-5.4) 04/29/21 12:38 [place] # (Auto) 0.5 K/mm3 (0.0-0.8) 04/29/21 12:38 Eos # (Auto) 0.3 K/mm3 (0.0-0.4) 04/29/21 12:38 Baso # (Auto) 0.1 K/mm3 (0.0-0.1) 04/29/21 12:38 Seg Neutrophils % 58.7 % (40.0-70.0) 04/29/21 12:38 Seg Neutrophils # 4.2 K/mm3 (1.8-7.7) 04/29/21 12:38 PT 13.5 Sec. (12.2-14.9) 04/29/21 12:38 INR 0.98 (0.87-1.13) 04/29/21 12:38 APTT 30.6 Sec. (24.2-36.6) 04/29/21 12:38 D-Dimer 202.38 ng/mlDDU (0-234) 04/29/21 12:38 Sodium 134 mmol/L (137-145) L 04/29/21 12:38 Potassium 4.1 mmol/L (3.6-5.0) 04/29/21 12:38 Chloride 100.4 mmol/L (98-107) 04/29/21 12:38 Carbon Dioxide 24 mmol/L (22-30) 04/29/21 12:38 Anion Gap 14 mmol/L 04/29/21 12:38 BUN 7 mg/dL (9-20) L 04/29/21 12:38 Creatinine 0.7 mg/dL (0.8-1.3) L 04/29/21 12:38 Estimated GFR > 60 ml/min 04/29/21 12:38 BUN/Creatinine Ratio 10 % 04/29/21 12:38 Glucose 89 mg/dL (75-100) 04/29/21 12:38 Calcium 9.5 mg/dL (8.4-10.2) 04/29/21 12:38 Magnesium 1.90 mg/dL (1.7-2.3) 04/29/21 12:40 Total Bilirubin 0.40 mg/dL (0.1-1.2) 04/29/21 12:38 AST 13 units/L (5-40) 04/29/21 12:38 ALT 10 units/L (7-56) 04/29/21 12:38 Alkaline Phosphatase 138 units/L (35-129) H 04/29/21 12:38 Total Creatine Kinase 55 units/L (55-170) 04/29/21 12:40 Troponin T < 0.010 ng/mL (0.00-0.029) 04/29/21 17:29 Total Protein 6.9 g/dL (6.3-8.2) 04/29/21 12:38 Albumin 4.3 g/dL (3.9-5) 04/29/21 12:38 Albumin/Globulin Ratio 1.7 % 04/29/21 12:38 Short CBC 04/29/21 04/30/21 Range/Units 12:38 06:02 WBC 7.1 6.4 (4.5-11.0) K/mm3 Hgb 16.0 H 14.2 (11.8-15.2) gm/dl Hct 45.9 H 41.0 (35.5-45.6) % Plt Count 259 229 (140-440) K/mm3 BMP 04/29/21 04/30/21 12:38 06:02 Sodium 134 L 141 D Potassium 4.1 4.6 Chloride 100.4 106.5 Carbon Dioxide 24 27 BUN 7 L 12 Creatinine 0.7 L 0.8 Glucose 89 86 Calcium 9.5 9.0 Cardiac Enzymes 04/29/21 04/29/21 04/29/21 Range/Units 12:38 12:40 14:42 Total Creatine Kinase 55 (55-170) units/L Troponin T < 0.010 < 0.010 (0.00-0.029) ng/mL 04/29/21 04/30/21 Range/Units 17:29 06:02 Total Creatine Kinase (55-170) units/L Troponin T < 0.010 < 0.010 (0.00-0.029) ng/mL Liver Function 04/29/21 Range/Units 12:38 Total Bilirubin 0.40 (0.1-1.2) mg/dL AST 13 (5-40) units/L ALT 10 (7-56) units/L Alkaline Phosphatase 138 H (35-129) units/L Albumin 4.3 (3.9-5) g/dL - Imaging and Cardiology EKG: report reviewed (Sinus rhythm no acute ST-T wave changes) Chest x-ray: report reviewed (No acute findings) Assessment and Plan Advance Directives: Yes (Full code) VTE prophylaxis?: Chemical Plan of care discussed with patient/family: Yes - Patient Problems (1) Acute coronary syndrome Current Visit: Yes Status: Acute Plan to address problem: Serial troponins and CKs For Lexiscan/cardiac cath as per cardiology (2) CAD (coronary artery disease) Current Visit: Yes Status: Chronic Qualifiers: Coronary Disease-Associated Artery/Lesion type: [place] artery [place] vs. transplanted heart: [place] heart Plan to address problem: Continue Brilinta (3) Hypertension Current Visit: Yes Status: Chronic Qualifiers: Hypertension type: primary hypertension Qualified Code(s): I10 - Essential (primary) hypertension Plan to address problem: Continue metoprolol and adjust medications as necessary (4) Hyperlipidemia Current Visit: Yes Status: Chronic Qualifiers: Hyperlipidemia type: mixed hyperlipidemia Qualified Code(s): E78.2 - Mixed hyperlipidemia Plan to address problem: Continue statins (5) Hyponatremia Current Visit: Yes Status: Acute Plan to address problem: Mild IV normal saline for 12 hours (6) Polycythemia due to fall in plasma volume Current Visit: Yes Status: Acute Plan to address problem: Due to fall in plasma volume IV hydration (7) DVT prophylaxis Current Visit: Yes Status: Acute Plan to address problem: On heparin and GI prophylaxis
[2021-04-29] MEDS: SODIUM CHLORIDE 0.9% 1000 ML 1,000 ML IV SCH ×2 (19:04→22:32)
[2021-04-29] MEDS: HEPARIN 5,000 UNIT/1 ML VIAL SUB-Q SCH (22:32)
[2021-04-29] MEDS: FAMOTIDINE 20 MG/2 ML INJ IV SCH (22:32)
[2021-04-29] MEDS: oxyCODONE /ACETAMINOPHEN 5-325MG TAB PO PRN (22:33)
[2021-04-30 06:21] LABS: Hemoglobin 14.2 gm/dl (11.8-15.2); Mean Corpuscular HGB Conc 35 % (32-34); Mean Corpuscular Volume 95 fl (84-94); Platelet Count 229 K/mm3 (140-440); Red Blood Count 4.34 M/mm3 (3.65-5.03); Red Cell Distribution Width 13.3 % (13.2-15.2)
[2021-04-30 06:47] LABS: BUN/Creatinine Ratio 15; Blood Urea Nitrogen 12 mg/dL (9-20); Chol/HDL Ratio 5.44 %; HDL Cholesterol 25 mg/dL (40-59); Hemolysis Index 15; LDL Cholesterol,Direct 100 mg/dL (50-130)
[2021-04-30] MEDS: oxyCODONE /ACETAMINOPHEN 5-325MG TAB PO PRN ×3 (08:20→22:03)
[2021-04-30] MEDS: ASPIRIN 81 MG TAB CHEW PO SCH (10:28)
[2021-04-30] MEDS: CLOPIDOGREL 75 MG TAB PO SCH (10:28)
[2021-04-30] MEDS: METOPROLOL TARTRATE 50 MG TAB PO SCH ×2 (10:28→22:03)
[2021-04-30] MEDS: HEPARIN 5,000 UNIT/1 ML VIAL SUB-Q SCH ×2 (10:29→22:03)
[2021-04-30] MEDS: FAMOTIDINE 20 MG/2 ML INJ IV SCH ×2 (10:29→22:04)
--- NOTE | 2021-04-30 11:56 | Progress Note ---
Assessment and Plan #1 acute coronary syndrome-pain fairly well controlled at present with nitroglycerin morphine as needed Plan cardiac catheterization Sunday a.m. #2 coronary disease-continue beta-tonia, Brilinta antiplatelet and antilipid therapy. #3 hypertension at present well controlled with metoprolol #4 hyperlipidemia continue statin LDL goal less than 70. Subjective Date of service: 04/30/21 Principal diagnosis: Acute coronary syndrome Interval history: 55-year-old with history of coronary artery disease status post CABG, hyperlipidemia tobacco abuse presents with left-sided chest pain admitted for acute coronary syndrome. Patient at present chest pain-free no nausea vomiting. No shortness of breath while at rest. Awaiting cardiac catheterization on Sunday Objective - Constitutional Vitals: Vital Signs - 12hr 04/30/21 04/30/21 04/30/21 01:17 01:44 02:08 Temperature 97.4 F L Pulse Rate 56 L 48 L Respiratory 18 Rate Blood Pressure Blood Pressure 90/56 [Left] O2 Sat by Pulse 94 98 Oximetry 04/30/21 04/30/21 05:58 08:17 Temperature 97.5 F L 97.8 F Pulse Rate 51 L 56 L Respiratory 18 20 Rate Blood Pressure 106/59 108/62 Blood Pressure [Left] O2 Sat by Pulse 97 100 Oximetry General appearance: Present: no acute distress, well-nourished - EENT Eyes: PERRL, EOM intact ENT: hearing intact, clear oral mucosa Ears: bilateral: normal - Neck Neck: supple, normal ROM - Respiratory Respiratory effort: normal Respiratory: bilateral: CTA - Breasts Breasts: normal - Cardiovascular Rhythm: regular Heart Sounds: Present: S1 & S2. Absent: gallop, rub Extremities: pulses intact, No edema, normal color, Full ROM - Gastrointestinal General gastrointestinal: Present: soft, non-tender, non-distended, normal bowel sounds - Genitourinary Male genitourinary: normal - Integumentary Integumentary: clear, warm, dry - Musculoskeletal Musculoskeletal: 1, strength equal bilaterally - Neurologic Neurologic: moves all extremities - Psychiatric Psychiatric: memory intact, appropriate mood/affect, intact judgment & insight - Labs CBC & Chem 7: 04/30/21 06:02 04/30/21 06:02 Labs: Abnormal lab results 04/29/21 04/29/21 04/29/21 Range/Units 12:38 12:38 22:01 Hgb 16.0 H (11.8-15.2) gm/dl Hct 45.9 H (35.5-45.6) % MCV (84-94) fl MCH 33 H (28-32) pg MCHC 35 H (32-34) % Sodium 134 L (137-145) mmol/L BUN 7 L (9-20) mg/dL Creatinine 0.7 L (0.8-1.3) mg/dL POC Glucose 114 H (70-105) mg/dL Alkaline Phosphatase 138 H (35-129) units/L Triglycerides (2-149) mg/dL HDL Cholesterol (40-59) mg/dL 04/30/21 04/30/21 Range/Units 06:02 06:02 Hgb (11.8-15.2) gm/dl Hct (35.5-45.6) % MCV 95 H (84-94) fl MCH 33 H (28-32) pg MCHC 35 H (32-34) % Sodium (137-145) mmol/L BUN (9-20) mg/dL Creatinine (0.8-1.3) mg/dL POC Glucose (70-105) mg/dL Alkaline Phosphatase (35-129) units/L Triglycerides 191 H (2-149) mg/dL HDL Cholesterol 25 L (40-59) mg/dL HEART Score - HEART Score EKG: Significant ST-depression Age: 45-65 Risk factors: > 3 risk factors or hx of atherosclerotic disease Troponin: Troponin T < 0.010 ng/mL (0.00-0.029) 04/30/21 06:02 Troponin: < normal limit - Critical Actions Critical Actions: 4-6 pts:12-16.6% risk of adverse cardiac event. Should be admitted
--- NOTE | 2021-04-30 13:29 | Progress Note ---
Assessment and Plan Unstable angina/CAD/stent/CABG Continue DAPT Plan for cardiac cath on Sunday Drug screen results pending HTN Hyperlipidemia Echo 06/2020- EF 50-55%, normal LV size, normal diastolic function, global RV hypokinesis, and RVSF moderately reduced [facility] 06/2020- subtotal occlusion of LAD, PARK to LAD patent with excellent runoff, RCA subtotally occluded distally. There is a mid in-stent 80% restenosis and a proximal/ostial 60-70% in stent restenosis Subjective Date of service: 04/30/21 Principal diagnosis: Acute coronary syndrome Interval history: Pt sitting up in bed and denies chest pain currently. Objective Vital Signs Temp Pulse Resp BP BP Pulse Ox 04/30/21 12:15 98.0 F 55 L 20 115/70 100 04/30/21 08:17 97.8 F 56 L 20 108/62 100 04/30/21 05:58 97.5 F L 51 L 18 106/59 97 04/30/21 02:08 98 04/30/21 01:44 48 L 04/30/21 01:17 97.4 F L 56 L 18 90/56 94 04/29/21 22:24 97.6 F 57 L 18 109/66 97 04/29/21 22:09 84 16 111/64 100 04/29/21 18:11 71 19 141/81 98 04/29/21 14:55 64 19 121/88 99 04/29/21 14:05 63 133/67 - Physical Examination HEENT: Positive: PERRL Neck: Positive: trachea midline Cardiac: Positive: Reg Rate and Rhythm Lungs: Positive: clear to auscultation, Normal Breath Sounds Neuro: Positive: Grossly Intact Abdomen: Positive: Soft, Active Bowel Sounds Skin: Negative: Rash, Suspicious Lesions, Ulceration Extremities: Present: upper extr. pulses, lower extr. pulses. Absent: edema - Labs and Meds Coagulation 04/29/21 Range/Units 12:38 PT 13.5 (12.2-14.9) Sec. INR 0.98 (0.87-1.13) APTT 30.6 (24.2-36.6) Sec. Lipids 04/30/21 Range/Units 06:02 Triglycerides 191 H (2-149) mg/dL Cholesterol 136 (50-199) mg/dL HDL Cholesterol 25 L (40-59) mg/dL Cholesterol/HDL Ratio 5.44 % CBC 04/30/21 Range/Units 06:02 WBC 6.4 (4.5-11.0) K/mm3 RBC 4.34 (3.65-5.03) M/mm3 Hgb 14.2 (11.8-15.2) gm/dl Hct 41.0 (35.5-45.6) % Plt Count 229 (140-440) K/mm3 Comprehensive Metabolic Panel 04/30/21 Range/Units 06:02 Sodium 141 D (137-145) mmol/L Potassium 4.6 (3.6-5.0) mmol/L Chloride 106.5 (98-107) mmol/L Carbon Dioxide 27 (22-30) mmol/L BUN 12 (9-20) mg/dL Creatinine 0.8 (0.8-1.3) mg/dL Glucose 86 (75-100) mg/dL Calcium 9.0 (8.4-10.2) mg/dL - Imaging and Cardiology EKG: report reviewed (Sinus rhythm no acute ST-T wave changes) Echo: report reviewed Cardiac cath: report reviewed - EKG Sinus rhythms and dysrhythmias: sinus rhythm AV and intraventricular conduction: right bundle branch block
[2021-05-01] MEDS: oxyCODONE /ACETAMINOPHEN 5-325MG TAB PO PRN ×2 (04:59→12:56)
[2021-05-01] MEDS: METOPROLOL TARTRATE 50 MG TAB PO SCH ×2 (10:18→22:50)
[2021-05-01] MEDS: ASPIRIN 81 MG TAB CHEW PO SCH (10:20)
[2021-05-01] MEDS: CLOPIDOGREL 75 MG TAB PO SCH (10:20)
[2021-05-01] MEDS: FAMOTIDINE 20 MG/2 ML INJ IV SCH ×2 (10:21→22:50)
[2021-05-01] MEDS: HEPARIN 5,000 UNIT/1 ML VIAL SUB-Q SCH ×2 (10:21→22:50)
--- NOTE | 2021-05-01 12:28 | Progress Note ---
Assessment and Plan Assessment and plan: #1 acute coronary syndrome-pain fairly well controlled at present with nitroglycerin morphine as needed Plan cardiac catheterization Sunday a.m. #2 coronary disease-continue beta-tonia, Brilinta antiplatelet and antilipid therapy. #3 hypertension at present well controlled with metoprolol #4 hyperlipidemia continue statin LDL goal less than 70. 55-year-old with history of coronary artery disease status post CABG, hyperlipidemia tobacco abuse presents with left-sided chest pain admitted for acute coronary syndrome. Patient at present chest pain-free no nausea vomiting. No shortness of breath while at rest. Awaiting cardiac catheterization on Tuesday 05/01: Pain 3/10 in intensity says the Percocet is not lasting a like a trial of morphine. Otherwise is planning for cardiac cath in a.m. Cardiology input appreciated History Interval history: Patient seen and examined clinically stable no new complaints ambulating only complaint today is left shoulder pain. Hospitalist Physical - Physical exam Narrative exam: General appearance: Present: no acute distress, well-nourished, ambulating in the room - EENT Eyes: PERRL, EOM intact ENT: hearing intact, clear oral mucosa Ears: bilateral: normal - Neck Neck: supple, normal ROM - Respiratory Respiratory effort: normal Respiratory: bilateral: CTA - Breasts Breasts: normal - Cardiovascular Rhythm: regular Heart Sounds: Present: S1 & S2. Absent: gallop, rub Extremities: pulses intact, No edema, normal color, Full ROM - Gastrointestinal General gastrointestinal: Present: soft, non-tender, non-distended, normal bowel sounds - Genitourinary Male genitourinary: normal - Integumentary Integumentary: clear, warm, dry - Musculoskeletal Musculoskeletal: 1, strength equal bilaterally - Neurologic Neurologic: moves all extremities - Psychiatric Psychiatric: memory intact, appropriate mood/affect, intact judgment & insight - Constitutional Vitals: Temp Pulse Resp BP Pulse Ox 97.6 F 52 L 18 114/72 100 05/01/21 08:10 05/01/21 10:18 05/01/21 08:10 05/01/21 10:18 05/01/21 08:10 General appearance: Present: no acute distress, well-nourished HEART Score - HEART Score EKG: Significant ST-depression Age: 45-65 Risk factors: > 3 risk factors or hx of atherosclerotic disease Troponin: Troponin T < 0.010 ng/mL (0.00-0.029) 04/30/21 06:02 Troponin: < normal limit - Critical Actions Critical Actions: 4-6 pts:12-16.6% risk of adverse cardiac event. Should be admitted Results - Labs CBC & Chem 7: 04/30/21 06:02 04/30/21 06:02 Labs: Laboratory Last Values WBC 6.4 K/mm3 (4.5-11.0) 04/30/21 06:02 RBC 4.34 M/mm3 (3.65-5.03) 04/30/21 06:02 Hgb 14.2 gm/dl (11.8-15.2) 04/30/21 06:02 Hct 41.0 % (35.5-45.6) 04/30/21 06:02 MCV 95 fl (84-94) H 04/30/21 06:02 MCH 33 pg (28-32) H 04/30/21 06:02 MCHC 35 % (32-34) H 04/30/21 06:02 RDW 13.3 % (13.2-15.2) 04/30/21 06:02 Plt Count 229 K/mm3 (140-440) 04/30/21 06:02 Lymph % (Auto) 29.1 % (13.4-35.0) 04/29/21 12:38 [place] % (Auto) 7.3 % (0.0-7.3) 04/29/21 12:38 Eos % (Auto) 3.9 % (0.0-4.3) 04/29/21 12:38 Baso % (Auto) 1.0 % (0.0-1.8) 04/29/21 12:38 Lymph # (Auto) 2.1 K/mm3 (1.2-5.4) 04/29/21 12:38 [place] # (Auto) 0.5 K/mm3 (0.0-0.8) 04/29/21 12:38 Eos # (Auto) 0.3 K/mm3 (0.0-0.4) 04/29/21 12:38 Baso # (Auto) 0.1 K/mm3 (0.0-0.1) 04/29/21 12:38 Seg Neutrophils % 58.7 % (40.0-70.0) 04/29/21 12:38 Seg Neutrophils # 4.2 K/mm3 (1.8-7.7) 04/29/21 12:38 PT 13.5 Sec. (12.2-14.9) 04/29/21 12:38 INR 0.98 (0.87-1.13) 04/29/21 12:38 APTT 30.6 Sec. (24.2-36.6) 04/29/21 12:38 D-Dimer 202.38 ng/mlDDU (0-234) 04/29/21 12:38 Sodium 141 mmol/L (137-145) D 04/30/21 06:02 Potassium 4.6 mmol/L (3.6-5.0) 04/30/21 06:02 Chloride 106.5 mmol/L (98-107) 04/30/21 06:02 Carbon Dioxide 27 mmol/L (22-30) 04/30/21 06:02 Anion Gap 12 mmol/L 04/30/21 06:02 BUN 12 mg/dL (9-20) 04/30/21 06:02 Creatinine 0.8 mg/dL (0.8-1.3) 04/30/21 06:02 Estimated GFR > 60 ml/min 04/30/21 06:02 BUN/Creatinine Ratio 15 % 04/30/21 06:02 Glucose 86 mg/dL (75-100) 04/30/21 06:02 POC Glucose 90 mg/dL (70-105) 04/30/21 01:13 Hemoglobin A1c 5.3 % (4-6) 04/30/21 06:02 Calcium 9.0 mg/dL (8.4-10.2) 04/30/21 06:02 Magnesium 1.90 mg/dL (1.7-2.3) 04/29/21 12:40 Total Bilirubin 0.40 mg/dL (0.1-1.2) 04/29/21 12:38 AST 13 units/L (5-40) 04/29/21 12:38 ALT 10 units/L (7-56) 04/29/21 12:38 Alkaline Phosphatase 138 units/L (35-129) H 04/29/21 12:38 Total Creatine Kinase 55 units/L (55-170) 04/29/21 12:40 Troponin T < 0.010 ng/mL (0.00-0.029) 04/30/21 06:02 Total Protein 6.9 g/dL (6.3-8.2) 04/29/21 12:38 Albumin 4.3 g/dL (3.9-5) 04/29/21 12:38 Albumin/Globulin Ratio 1.7 % 04/29/21 12:38 Triglycerides 191 mg/dL (2-149) H 04/30/21 06:02 Cholesterol 136 mg/dL (50-199) 04/30/21 06:02 LDL Cholesterol Direct 100 mg/dL (50-130) 04/30/21 06:02 HDL Cholesterol 25 mg/dL (40-59) L 04/30/21 06:02 Cholesterol/HDL Ratio 5.44 % 04/30/21 06:02 Carrasco/IV: Voiding Method Toilet Active Medications - Current Medications Current Medications: Generic Name Dose Route Start Last Admin Trade Name Freq PRN Reason Stop Dose Admin Acetaminophen 650 mg 04/29/21 18:17 Acetaminophen 325 Mg Tab PO Q4H PRN Pain MILD(1-3)/Fever >100.5/SANCHEZ Aspirin 325 mg 05/02/21 06:00 Aspirin Ec 325 Mg Tab PO 05/02/21 06:01 ONCE ONE Aspirin 81 mg 04/30/21 10:00 05/01/21 10:20 Aspirin 81 Mg Tab Chew PO 05/01/21 22:00 81 mg QDAY TITO Administration Aspirin 81 mg 05/03/21 10:00 Aspirin 81 Mg Tab Chew PO QDAY TITO Clopidogrel Bisulfate 75 mg 04/29/21 15:00 05/01/21 10:20 Clopidogrel 75 Mg Tab PO 75 mg QDAY TITO Administration Famotidine 20 mg 04/29/21 22:00 05/01/21 10:21 Famotidine 20 Mg/2 Ml Inj IV Not Given BID TITO Heparin Sodium (Porcine) 5,000 unit 04/29/21 22:00 05/01/21 10:21 Heparin 5,000 Unit/1 Ml Vial SUB-Q Not Given Q12HR TITO Hydromorphone HCl 0.5 mg 04/29/21 18:20 Hydromorphone 1 Mg/1 Ml Inj IV Q3H PRN Pain , Severe (7-10) Metoprolol Tartrate 25 mg 04/30/21 10:00 05/01/21 10:18 Metoprolol Tartrate 50 Mg Tab PO Not Given BID TITO Nitroglycerin 0.4 mg 04/29/21 12:36 04/29/21 14:05 Nitroglycerin 0.4 Mg Tab Subl SL 0.4 mg .Q5MIN PRN Administration Chest Pain Ondansetron HCl 4 mg 04/29/21 18:17 Ondansetron 4 Mg/2 Ml Inj IV Q8H PRN Nausea And Vomiting Oxycodone/Acetaminophen 1 tab 04/29/21 18:20 05/01/21 04:59 Oxycodone /Acetaminophen 5-325mg Tab PO 1 tab Q6H PRN Administration Pain, Moderate (4-6) Sodium Chloride 10 ml 04/29/21 22:00 05/01/21 10:21 Sodium Chloride 0.9% 10 Ml Flush Syringe IV 10 ml BID TITO Administration Sodium Chloride 10 ml 04/29/21 18:17 Sodium Chloride 0.9% 10 Ml Flush Syringe IV PRN PRN LINE FLUSH
[2021-05-01] MEDS: NITROGLYCERIN 0.4 MG TAB SUBL SL PRN ×3 (14:44→14:58)
[2021-05-01] MEDS ORDERED: MORPHINE 2 MG/1 ML INJ IV PRN (16:45)
[2021-05-01] MEDS ORDERED: NALOXONE 0.4 MG/1 ML INJ IV PRN (16:45)
[2021-05-01] MEDS: HYDROmorphone 1 MG/1 ML INJ IV PRN ×2 (17:46→23:36)
--- NOTE | 2021-05-01 22:26 | Progress Note ---
Assessment and Plan Unstable angina/CAD/stent/CABG Continue DAPT Plan for cardiac cath on Sunday HTN Hyperlipidemia Echo 06/2020- EF 50-55%, normal LV size, normal diastolic function, global RV hypokinesis, and RVSF moderately reduced [facility] 06/2020- subtotal occlusion of LAD, PARK to LAD patent with excellent runoff, RCA subtotally occluded distally. There is a mid in-stent 80% restenosis and a proximal/ostial 60-70% in stent restenosis Subjective Date of service: 05/01/21 Principal diagnosis: Acute coronary syndrome Interval history: Pt sitting up in bed and denies chest pain currently. Objective Vital Signs Temp Pulse Resp BP Pulse Ox 05/01/21 20:08 97.8 F 57 L 18 128/80 97 05/01/21 14:58 87 139/88 05/01/21 14:54 66 142/79 05/01/21 14:51 79 142/79 100 05/01/21 14:44 80 188/110 05/01/21 14:42 80 188/110 99 05/01/21 14:00 93 H 05/01/21 12:56 61 118/68 99 05/01/21 12:55 97.3 F L 05/01/21 10:43 94 05/01/21 10:18 52 L 114/72 05/01/21 08:10 97.6 F 52 L 18 114/72 100 05/01/21 04:23 97.2 F L 50 L 18 124/65 98 - Physical Examination HEENT: Positive: PERRL Neck: Positive: trachea midline Neuro: Positive: Grossly Intact Abdomen: Positive: Soft, Active Bowel Sounds Skin: Negative: Rash, Suspicious Lesions, Ulceration Extremities: Present: upper extr. pulses, lower extr. pulses. Absent: edema - Imaging and Cardiology EKG: report reviewed (Sinus rhythm no acute ST-T wave changes) Echo: report reviewed Cardiac cath: report reviewed - EKG Sinus rhythms and dysrhythmias: sinus rhythm AV and intraventricular conduction: right bundle branch block
[2021-05-01] MEDS: DOCUSATE SODIUM 100 MG/10 ML ORAL LIQD PO SCH (22:50)
[2021-05-02 05:48] LABS: Basophils # (Auto) 0.1 K/mm3 (0.0-0.1); Basophils % (Auto) 1.1 % (0.0-1.8); Eosinophils # (Auto) 0.5 K/mm3 (0.0-0.4); Hematocrit 42.2 % (35.5-45.6); Hemoglobin 14.3 gm/dl (11.8-15.2); Lymphocytes % (Auto) 39.4 % (13.4-35.0); Mean Corpuscular HGB Conc 34 % (32-34); Mean Corpuscular Volume 94 fl (84-94); Monocytes # (Auto) 0.6 K/mm3 (0.0-0.8); Monocytes % (Auto) 7.4 % (0.0-7.3); Platelet Count 255 K/mm3 (140-440); Red Blood Count 4.49 M/mm3 (3.65-5.03); Red Cell Distribution Width 13.2 % (13.2-15.2)
[2021-05-02 05:53] LABS: INR 0.99 (0.87-1.13)
[2021-05-02 05:59] LABS: BUN/Creatinine Ratio 11; Blood Urea Nitrogen 9 mg/dL (9-20); Calcium 9.4 mg/dL (8.4-10.2); Hemolysis Index 14
[2021-05-02] MEDS ORDERED: ASPIRIN EC 325 MG TAB PO ONE (06:00)
[2021-05-02] MEDS ORDERED: MIDAZOLAM 2 MG/2 ML INJ ONE (08:36)
[2021-05-02] MEDS ORDERED: HEPARIN/NS 5000 UNIT/500ML 1,000 ML IR ONE (08:37)
[2021-05-02] MEDS ORDERED: fentaNYL 100 MCG/2 ML INJ ONE (08:37)
[2021-05-02] MEDS ORDERED: LIDOCAINE (2%) 20 MG/1 ML VIAL 20 ML MDV INFILTRATI ONE (08:37)
[2021-05-02] MEDS ORDERED: SODIUM CHLORIDE 0.9% 1000 ML 1,000 ML ONE (08:42)
[2021-05-02] MEDS ORDERED: HEPARIN 10,000 UNITS/10 ML VIAL ONE (09:37)
--- NOTE | 2021-05-02 10:29 | Electrocardiograph Report ---
[facility] Test Date: 2021-04-29 Test Time: 13:49:06 Pat Name: ANGEL LUIS LITTLE Department: Room: A462 1 Gender: M Mapping Pilot: [id number] : 1965 Requested By: ADDIS JONES Order Number: [id number] Reading MD: Leon Newman Measurements Intervals [place] Rate: 62 P: 24 MA: 115 QRS: -79 QRSD: 158 T: 25 QT: 418 QTc: 425 Interpretive Statements Sinus rhythm RBBB and LAFB Compared to ECG 04/29/2021 12:00:25 Left anterior fascicular block now present Myocardial infarct finding no longer present ST (T wave) deviation no longer present Possible ischemia no longer present Electronically Signed On 05-02-2021 10:29:33 EDT by Leon Newman
[2021-05-02] MEDS ORDERED: ALUM-MAG HYDROXIDE-SIMETHICONE 200-200-20MG/5ML ORAL LIQD 30 ML ONE (10:38)
--- NOTE | 2021-05-02 10:39 | Electrocardiograph Report ---
[facility] Test Date: 2021-05-01 Test Time: 15:01:39 Pat Name: ANGEL LUIS LITTLE Department: Room: A462 1 Gender: M Center Customer Service Associate: RADHA : 1965 Requested By: LAURA KNOX Order Number: [id number] Reading MD: Leon Newman Measurements Intervals [place] Rate: 75 P: 39 MS: 126 QRS: 28 QRSD: 151 T: 18 QT: 436 QTc: 489 Interpretive Statements Sinus rhythm Right bundle branch block Inferior infarct, old Compared to ECG 04/29/2021 12:00:25 ST (T wave) deviation no longer present Possible ischemia no longer present Myocardial infarct finding still present Electronically Signed On 05-02-2021 10:39:08 EDT by Leon Newman
[2021-05-02] MEDS: CLOPIDOGREL 300 MG TAB ONE ×2 (10:40→12:28)
[2021-05-02] MEDS: CLOPIDOGREL 75 MG TAB PO SCH (11:00)
[2021-05-02] MEDS: HEPARIN 5,000 UNIT/1 ML VIAL SUB-Q SCH ×2 (11:00→22:28)
--- NOTE | 2021-05-02 11:29 | Cardiac Catherization Report ---
DATE OF PROCEDURE: 05/02/2021 CARDIAC CATHETERIZATION REFERRING PHYSICIAN: Hospitalist service. INDICATIONS FOR PROCEDURE: The patient is a pleasant 55-year-old gentleman with multiple recent admissions within the past 1 week with recalcitrant chest pain, recurrent chest pain, unstable angina, questionable history of polysubstance abuse, the patient denies. UDS is pending. PRIMARY HEAD WAITER/WAITRESS: Dr. Herzog. DESCRIPTION OF PROCEDURE: The patient was brought to slabbing machine operator in a postabsorptive state, prepped and draped in sterile fashion. Given the bypass, we used a groin approach. An 8 mL of 2% lidocaine used to anesthetize the right groin. A standard 6 [place] sheath was used to cannulate the right common femoral artery via modified Seldinger technique. All exchanges performed to exchange a J-tip guidewire. JL3.5 catheter used to engage the left main, no dampening or ventricularization. Cineangiography performed in multiple projections. JR4 catheter used to cross the aortic valve under fluoroscopic guidance. Left ventriculography performed in 30-degree MEEK and 30-degree ALEKSANDER projections via hand injections, catheter flushed. Manual pullback performed with continuous pressure monitoring. Catheter used to engage the right coronary. No dampening or ventricularization. Cineangiography performed in multiple projections. Next, catheter used to engage the left subclavian, carefully advanced over a wire. A selective left subclavian angiography performed due to tortuosity angiography. Next, selective PARK angiography was performed in multiple projections. Next, catheter carefully removed from the subclavian and body over a wire. DATA: Aortic pressure is 140/70, LV pressure is 140. LVEDP of 12 mmHg. Left ventriculography reveals normal systolic performance, estimated ejection fraction of 55-60%. No evidence of aortic stenosis. CORONARY ANATOMY: This is a right dominant system. There is a full metal jacket in the proximal and mid right coronary. There is a 99% in-stent restenosis with a 99% stenosis to the distal edge of the preexisting stent. This is the culprit lesion. PARK to LAD is widely patent. Excellent flow in the distal vessel, no stenosis. Left main without significant disease. Ostial LAD is occluded. Left circumflex with a [id number] disease of the small vessel, 25% mid segment stenosis, but obstructive or occlusive disease identified. Given his recurrent chest pain, unstable angina and findings, we decided to proceed with PCI. Heparin given. Abnormal ACT confirmed. The patient reloaded with aspirin and Plavix. No torque. Right guide used to engage the right coronary without difficulty. Next, we used a [place] wire to cross the lesion, predilated the lesion with 2.0 x 12 balloon, used a 2.5 x 18 Resolute drug-eluting stent overlapping the proximal stent postdilated at 14 atmospheres. Excellent angiographic result. Next, we did post dilate the proximal and ostial RCA stent. No dampening, excellent angiographic result. Next, intravascular ultrasound was performed, multiple passes were made, reveals no significant ostial disease, well opposed and well expanded stents throughout. No dissection. AMI 3 flow. The patient is chest pain free. Great result. I directly supervised the administration of moderate sedation from 9:24 a.m. to 10:10 a.m. No immediate complications. CONCLUSIONS: 1. Severe single vessel coronary disease with 99% ulcerated distal right coronary lesion. A. Successful IVUS-guided percutaneous coronary intervention with placement of 2.5 x 18 Resolute drug-eluting stent in overlapping fashion with excellent final angiographic result. Also post-dilatation of the proximal/ostial right coronary stent with 0% residual stenosis, excellent IVUS result. No complications, no dissection. 2. Patent PARK to LAD. 3. 100% occluded ostial LAD. 4. Patent left main. 5. Moderate nonobstructive disease in the left circumflex. 6. Normal left ventricular systolic performance with estimated ejection fraction of 55-60%. 7. No evidence of aortic stenosis. The patient is clinically stable, chest pain free. Continue aggressive primary and secondary prevention measures, Plavix, aspirin, and statin therapy. Standard groin care. Discussed with primary school of nursing director, Dr. Herzog. Anticipate discharge in a.m. TID: [id number] RECEIPT: [id number] SBM/LONNIE/MINESH
--- NOTE | 2021-05-02 12:10 | Progress Note ---
Assessment and Plan Unstable angina/CAD * EKG shows normal sinus rhythm with a RBBB with a rate of 83, no acute ischemic changes. Troponins neg x2. AMI ruled out * Echo 06/2020- EF 50-55%, normal LV size, normal diastolic function, global RV hypokinesis, and RVSF moderately reduced * C 06/2020- subtotal occlusion of LAD, PARK to LAD patent with excellent runoff, RCA subtotally occluded distally. There is a mid in-stent 80% restenosis and a proximal/ostial 60-70% in stent restenosis * Patient is on DAPT with aspirin/Plavix. 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 Patient should continue DAPT Plavix x1 year HTN * Optimize hypertensive regimen metoprolol 25mg XL [facility] positive s/p PCI of RCA. Patient may discharge tomorrow from a cardiac standpoint. Patient should follow up in 1-[address] Herzog, [facility], phone [phone] Patient seen in conjunction with Dr. Newman who agrees with this plan of care. We will continue to follow - Patient Problems (1) Hypertension Current Visit: Yes Status: Acute (2) Unstable angina Current Visit: Yes Status: Acute (3) CAD (coronary artery disease) Current Visit: Yes Status: Chronic Qualifiers: Coronary Disease-Associated Artery/Lesion type: [place] artery [place] vs. transplanted heart: [place] heart (4) Chest pain Current Visit: No Status: Acute (5) Tobacco abuse Current Visit: No Status: Chronic Subjective Date of service: 05/02/21 Principal diagnosis: Acute coronary syndrome Interval history: Patient at cath lab tech this AM Sinus rome 40s-50s overnight with no events on monitor Objective Last Vital Signs Temp 97.6 F 05/02/21 05:25 Pulse 60 05/02/21 11:30 Resp 12 05/02/21 11:30 BP 130/81 05/02/21 11:30 Pulse Ox 98 05/02/21 11:30 - Physical Examination General: No Apparent Distress HEENT: Positive: PERRL Neck: Positive: trachea midline Cardiac: Positive: Regular Rhythm, Bradycardia Lungs: Positive: Normal Breath Sounds Neuro: Positive: Grossly Intact Abdomen: Positive: Soft, Active Bowel Sounds Skin: Negative: Rash, Suspicious Lesions, Ulceration Extremities: Present: upper extr. pulses, lower extr. pulses. Absent: edema - Labs and Meds Coagulation 05/02/21 Range/Units 04:31 PT 13.6 (12.2-14.9) Sec. INR 0.99 (0.87-1.13) CBC 05/02/21 Range/Units 04:31 WBC 7.6 (4.5-11.0) K/mm3 RBC 4.49 (3.65-5.03) M/mm3 Hgb 14.3 (11.8-15.2) gm/dl Hct 42.2 (35.5-45.6) % Plt Count 255 (140-440) K/mm3 Lymph # (Auto) 3.0 (1.2-5.4) K/mm3 [place] # (Auto) 0.6 (0.0-0.8) K/mm3 Eos # (Auto) 0.5 H (0.0-0.4) K/mm3 Baso # (Auto) 0.1 (0.0-0.1) K/mm3 Comprehensive Metabolic Panel 05/02/21 Range/Units 04:31 Sodium 142 (137-145) mmol/L Potassium 4.2 (3.6-5.0) mmol/L Chloride 106.6 (98-107) mmol/L Carbon Dioxide 29 (22-30) mmol/L BUN 9 (9-20) mg/dL Creatinine 0.8 (0.8-1.3) mg/dL Glucose 88 (75-100) mg/dL Calcium 9.4 (8.4-10.2) mg/dL - Imaging and Cardiology EKG: report reviewed (Sinus rhythm no acute ST-T wave changes) Echo: report reviewed Cardiac cath: report reviewed - Telemetry EKG Rhythm: Sinus Bradycardia - EKG Sinus rhythms and dysrhythmias: sinus rhythm AV and intraventricular conduction: right bundle branch block
[2021-05-02] MEDS: FAMOTIDINE 20 MG/2 ML INJ IV SCH ×2 (13:05→22:29)
[2021-05-02] MEDS: DOCUSATE SODIUM 100 MG/10 ML ORAL LIQD PO SCH (13:05)
[2021-05-02] MEDS: METOPROLOL TARTRATE 50 MG TAB PO SCH ×2 (13:05→22:29)
--- NOTE | 2021-05-02 13:31 | Progress Note ---
Assessment and Plan Assessment and plan: 55-year-old with history of coronary artery disease status post CABG, hyperlipidemia tobacco abuse presents with left-sided chest pain admitted for acute coronary syndrome. Patient at present chest pain-free no nausea vomiting. No shortness of breath while at rest. Awaiting cardiac catheterization on Tuesday 05/01: Pain 3/10 in intensity says the Percocet is not lasting a like a trial of morphine. Otherwise is planning for cardiac cath in a.m. 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 Patient should continue DAPT Plavix x1 year. [facility] positive s/p PCI of RCA. Patient may discharge tomorrow from a cardiac standpoint. Counseling provided to the patient blood pressure medication optimized with metoprolol 25 mg XL. Appropriate antiplatelet therapy continued #1 chest pain, CAD acute coronary syndrome-pain fairly well controlled at present with nitroglycerin morphine as needed Plan cardiac catheterization Sunday a.m. #2 coronary disease-continue beta-tonia, Plavix, aspirin and antilipid therapy. #3 hypertension at present well controlled with metoprolol #4 hyperlipidemia continue statin LDL goal less than 70. #Tobacco use disorder: 15 minutes of counseling provided, patient verbalized understand History Interval history: Patient seen and examined clinically stable cardiac cath today. Hospitalist Physical - Physical exam Narrative exam: General appearance: Present: no acute distress, well-nourished - EENT Eyes: PERRL, EOM intact ENT: hearing intact, clear oral mucosa Ears: bilateral: normal - Neck Neck: supple, normal ROM - Respiratory Respiratory effort: normal Respiratory: bilateral: CTA - Breasts Breasts: normal - Cardiovascular Rhythm: regular Heart Sounds: Present: S1 & S2. Absent: gallop, rub Extremities: pulses intact, No edema, normal color, Full ROM - Gastrointestinal General gastrointestinal: Present: soft, non-tender, non-distended, normal bowel sounds - Genitourinary Male genitourinary: normal - Integumentary Integumentary: clear, warm, dry - Musculoskeletal Musculoskeletal: 1, strength equal bilaterally - Neurologic Neurologic: moves all extremities - Psychiatric Psychiatric: memory intact, appropriate mood/affect, intact judgment & insight - Constitutional Vitals: Temp Pulse Resp BP Pulse Ox 97.8 F 61 17 142/80 99 05/02/21 12:56 05/02/21 13:05 05/02/21 12:56 05/02/21 13:05 05/02/21 12:56 General appearance: Present: no acute distress, well-nourished HEART Score - HEART Score EKG: Significant ST-depression Age: 45-65 Risk factors: > 3 risk factors or hx of atherosclerotic disease Troponin: Troponin T < 0.010 ng/mL (0.00-0.029) 04/30/21 06:02 Troponin: < normal limit - Critical Actions Critical Actions: 4-6 pts:12-16.6% risk of adverse cardiac event. Should be admitted Results - Labs CBC & Chem 7: 05/02/21 04:31 05/02/21 04:31 Labs: Laboratory Last Values WBC 7.6 K/mm3 (4.5-11.0) 05/02/21 04:31 RBC 4.49 M/mm3 (3.65-5.03) 05/02/21 04:31 Hgb 14.3 gm/dl (11.8-15.2) 05/02/21 04:31 Hct 42.2 % (35.5-45.6) 05/02/21 04:31 MCV 94 fl (84-94) 05/02/21 04:31 MCH 32 pg (28-32) 05/02/21 04:31 MCHC 34 % (32-34) 05/02/21 04:31 RDW 13.2 % (13.2-15.2) 05/02/21 04:31 Plt Count 255 K/mm3 (140-440) 05/02/21 04:31 Lymph % (Auto) 39.4 % (13.4-35.0) H 05/02/21 04:31 [place] % (Auto) 7.4 % (0.0-7.3) H 05/02/21 04:31 Eos % (Auto) 6.0 % (0.0-4.3) H 05/02/21 04:31 Baso % (Auto) 1.1 % (0.0-1.8) 05/02/21 04:31 Lymph # (Auto) 3.0 K/mm3 (1.2-5.4) 05/02/21 04:31 [place] # (Auto) 0.6 K/mm3 (0.0-0.8) 05/02/21 04:31 Eos # (Auto) 0.5 K/mm3 (0.0-0.4) H 05/02/21 04:31 Baso # (Auto) 0.1 K/mm3 (0.0-0.1) 05/02/21 04:31 Seg Neutrophils % 46.1 % (40.0-70.0) 05/02/21 04:31 Seg Neutrophils # 3.5 K/mm3 (1.8-7.7) 05/02/21 04:31 PT 13.6 Sec. (12.2-14.9) 05/02/21 04:31 INR 0.99 (0.87-1.13) 05/02/21 04:31 APTT 30.6 Sec. (24.2-36.6) 04/29/21 12:38 D-Dimer 202.38 ng/mlDDU (0-234) 04/29/21 12:38 Sodium 142 mmol/L (137-145) 05/02/21 04:31 Potassium 4.2 mmol/L (3.6-5.0) 05/02/21 04:31 Chloride 106.6 mmol/L (98-107) 05/02/21 04:31 Carbon Dioxide 29 mmol/L (22-30) 05/02/21 04:31 Anion Gap 11 mmol/L 05/02/21 04:31 BUN 9 mg/dL (9-20) 05/02/21 04:31 Creatinine 0.8 mg/dL (0.8-1.3) 05/02/21 04:31 Estimated GFR > 60 ml/min 05/02/21 04:31 BUN/Creatinine Ratio 11 % 05/02/21 04:31 Glucose 88 mg/dL (75-100) 05/02/21 04:31 POC Glucose 90 mg/dL (70-105) 05/02/21 08:06 Hemoglobin A1c 5.3 % (4-6) 04/30/21 06:02 Calcium 9.4 mg/dL (8.4-10.2) 05/02/21 04:31 Magnesium 1.90 mg/dL (1.7-2.3) 04/29/21 12:40 Total Bilirubin 0.40 mg/dL (0.1-1.2) 04/29/21 12:38 AST 13 units/L (5-40) 04/29/21 12:38 ALT 10 units/L (7-56) 04/29/21 12:38 Alkaline Phosphatase 138 units/L (35-129) H 04/29/21 12:38 Total Creatine Kinase 55 units/L (55-170) 04/29/21 12:40 Troponin T < 0.010 ng/mL (0.00-0.029) 04/30/21 06:02 Total Protein 6.9 g/dL (6.3-8.2) 04/29/21 12:38 Albumin 4.3 g/dL (3.9-5) 04/29/21 12:38 Albumin/Globulin Ratio 1.7 % 04/29/21 12:38 Triglycerides 191 mg/dL (2-149) H 04/30/21 06:02 Cholesterol 136 mg/dL (50-199) 04/30/21 06:02 LDL Cholesterol Direct 100 mg/dL (50-130) 04/30/21 06:02 HDL Cholesterol 25 mg/dL (40-59) L 04/30/21 06:02 Cholesterol/HDL Ratio 5.44 % 04/30/21 06:02 [place]/IV: Voiding Method Urinal Active Medications - Current Medications Current Medications: Generic Name Dose Route Start Last Admin Trade Name Freq PRN Reason Stop Dose Admin Acetaminophen 650 mg 04/29/21 18:17 Acetaminophen 325 Mg Tab PO Q4H PRN Pain MILD(1-3)/Fever >100.5/SANCHEZ Aspirin 81 mg 05/03/21 10:00 Aspirin 81 Mg Tab Chew PO QDAY TITO Clopidogrel Bisulfate 75 mg 04/29/21 15:00 05/02/21 11:00 Clopidogrel 75 Mg Tab PO Not Given QDAY TITO Docusate Sodium 100 mg 05/01/21 22:00 05/02/21 13:05 Docusate Sodium 100 Mg/10 Ml Oral Liqd PO 100 mg BID TITO Administration Famotidine 20 mg 04/29/21 22:00 05/02/21 13:05 Famotidine 20 Mg/2 Ml Inj IV 20 mg BID TITO Administration Heparin Sodium (Porcine) 5,000 unit 04/29/21 22:00 05/02/21 11:00 Heparin 5,000 Unit/1 Ml Vial SUB-Q Not Given Q12HR TITO Hydromorphone HCl 0.5 mg 04/29/21 18:20 05/01/21 23:36 Hydromorphone 1 Mg/1 Ml Inj IV 0.5 mg Q3H PRN Administration Pain , Severe (7-10) Metoprolol Tartrate 25 mg 04/30/21 10:00 05/02/21 13:05 Metoprolol Tartrate 50 Mg Tab PO 25 mg BID TITO Administration Morphine Sulfate 2 mg 05/01/21 16:45 Morphine 2 Mg/1 Ml Inj IV Q4H PRN Pain, Moderate (4-6) Naloxone HCl 0.1 mg 05/01/21 16:45 Naloxone 0.4 Mg/1 Ml Inj IV Q2MIN PRN Res Rate </= 8 or 02 SAT < 92% Nitroglycerin 0.4 mg 04/29/21 12:36 05/01/21 14:58 Nitroglycerin 0.4 Mg Tab Subl SL 0.4 mg .Q5MIN PRN Administration Chest Pain Ondansetron HCl 4 mg 04/29/21 18:17 Ondansetron 4 Mg/2 Ml Inj IV Q8H PRN Nausea And Vomiting Sodium Chloride 10 ml 04/29/21 22:00 05/02/21 13:06 Sodium Chloride 0.9% 10 Ml Flush Syringe IV 10 ml BID TITO Administration Sodium Chloride 10 ml 04/29/21 18:17 Sodium Chloride 0.9% 10 Ml Flush Syringe IV PRN PRN LINE FLUSH
[2021-05-02] MEDS: HYDROmorphone 1 MG/1 ML INJ IV PRN (15:56)
[2021-05-02] MEDS: DOCUSATE SODIUM 100 MG CAP PO SCH (22:28)
[2021-05-03] MEDS: HYDROmorphone 1 MG/1 ML INJ IV PRN (00:58)
[2021-05-03] MEDS: FAMOTIDINE 20 MG/2 ML INJ IV SCH (09:04)
[2021-05-03] MEDS: DOCUSATE SODIUM 100 MG CAP PO SCH (09:04)
[2021-05-03] MEDS: HEPARIN 5,000 UNIT/1 ML VIAL SUB-Q SCH (09:04)
[2021-05-03] MEDS: METOPROLOL TARTRATE 50 MG TAB PO SCH (09:04)
[2021-05-03] MEDS: CLOPIDOGREL 75 MG TAB PO SCH (09:04)
[2021-05-03 09:05] VITALS: BP 118/77
--- NOTE | 2021-05-03 09:45 | Discharge Summary ---
Providers - Providers Date of Admission: 05/02/21 12:41 Attending physician: BOZENA JACKSON MD 04/29/21 12:36 Consult to Physician [CONS] Urgent Comment: Consulting Provider: HARSHIL PALOMARES Physician Instructions: Reason For Exam: acute cp Primary care physician: DETENTION WORKER Hospitalization Reason for admission: chest pain Condition: Good Hospital course: 55-year-old with history of coronary artery disease status post CABG, hyperlipidemia tobacco abuse presents with left-sided chest pain admitted for acute coronary syndrome. Patient at present chest pain-free no nausea vomiting. No shortness of breath while at rest. Awaiting cardiac catheterization on Tuesday 05/01: Pain 3/10 in intensity says the Percocet is not lasting a like a trial of morphine. Otherwise is planning for cardiac cath in a.m. Cardiology input appreciated 05/02:, Patient underwent cardiac catheterization per cardiology " [facility] 05/02/2021- Severe 99% ulcerated distal RCA, PCI with ROSAURA, patent PARK to LAD 100% TESTER ROCKET ENGINE of the LAD, moderate nonobstructive disease in the left circumflex. Patient should continue DAPT Plavix x1 year. [facility] positive s/p PCI of RCA. Patient may discharge tomorrow from a cardiac standpoint. Counseling provided to the patient blood pressure medication optimized with metoprolol 25 mg XL. Appropriate antiplatelet therapy continued 05/03: Patient seen and examined, clinically stable, No new complaints, Will follow with cardiology outpatient and will quit tobacco use. #1 chest pain, CAD acute coronary syndrome-pain fairly well controlled at present with nitroglycerin morphine as needed #2 coronary disease-continue beta-tonia, Plavix, aspirin and antilipid therapy. #3 hypertension at present well controlled with metoprolol #4 hyperlipidemia continue statin LDL goal less than 70. #Tobacco use disorder: 15 minutes of counseling provided, patient verbalized understand Disposition: - TO HOME OR SELFCARE Final Discharge Diagnosis (Prints w/discharge instructions): UNSTABLE ANGINA Time spent for discharge: 35 mins Core Measure Documentation - Palliative Care Palliative Care/ Comfort Measures: Not Applicable - Core Measures Any of the following diagnoses?: none Exam - Physical Exam Narrative exam: General appearance: Present: no acute distress, well-nourished - EENT Eyes: PERRL, EOM intact ENT: hearing intact, clear oral mucosa Ears: bilateral: normal - Neck Neck: supple, normal ROM - Respiratory Respiratory effort: normal Respiratory: bilateral: CTA - Breasts Breasts: normal - Cardiovascular Rhythm: regular Heart Sounds: Present: S1 & S2. Absent: gallop, rub Extremities: pulses intact, No edema, normal color, Full ROM - Gastrointestinal General gastrointestinal: Present: soft, non-tender, non-distended, normal bowel sounds - Genitourinary Male genitourinary: normal - Integumentary Integumentary: clear, warm, dry - Musculoskeletal Musculoskeletal: 1, strength equal bilaterally - Neurologic Neurologic: moves all extremities - Psychiatric Psychiatric: memory intact, appropriate mood/affect, intact judgment & insight - Constitutional Vitals: Temp Pulse Resp BP Pulse Ox 97.5 F L 57 L 16 118/77 97 05/03/21 08:17 05/03/21 09:04 05/03/21 08:31 05/03/21 09:04 05/03/21 08:31 Plan Activity: advance as tolerated, fall precautions Diet: low fat, low salt Special Instructions: record daily BP diary, record blood sugar diary, physical therapy, occupational therapy Follow up with: PRIMARY CARE, [Primary Care Provider] - 3-5 Days HARSHIL PALOMARES MD [Staff Physician] - 7 Days Prescriptions: AtorvaSTATin [Lipitor] 40 mg PO QHS #30 tab Clopidogrel [Plavix] 75 mg PO QDAY #30 tablet
[2021-05-03] MEDS ORDERED: ASPIRIN 81 MG TAB CHEW PO SCH (10:00)
--- NOTE | 2021-05-03 12:20 | Progress Note ---
Assessment and Plan Unstable angina/CAD * EKG shows normal sinus rhythm with a RBBB with a rate of 83, no acute ischemic changes. Troponins neg x2. AMI ruled out * Echo 06/2020- EF 50-55%, normal LV size, normal diastolic function, global RV hypokinesis, and RVSF moderately reduced * C 06/2020- subtotal occlusion of LAD, PARK to LAD patent with excellent runoff, RCA subtotally occluded distally. There is a mid in-stent 80% restenosis and a proximal/ostial 60-70% in stent restenosis * Patient is on DAPT with aspirin/Plavix. 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 Patient should continue DAPT Plavix x1 year * EKG post procedure shows sinus rhythm and is unchanged HTN * Optimize hypertensive regimen metoprolol 25mg XL C positive s/p PCI of RCA. Patient may from a cardiac standpoint. Patient should follow up on 05/19/2021t 10:30am with Dr. Herzog, [facility], at our [place] location phone [phone] Patient seen in conjunction with Dr. Newman who agrees with this plan of care. We will continue to follow - Patient Problems (1) Hypertension Current Visit: Yes Status: Acute (2) Unstable angina Current Visit: Yes Status: Acute (3) CAD (coronary artery disease) Current Visit: Yes Status: Chronic Qualifiers: Coronary Disease-Associated Artery/Lesion type: [place] artery [place] vs. transplanted heart: [place] heart (4) Chest pain Current Visit: No Status: Acute (5) Tobacco abuse Current Visit: No Status: Chronic Subjective Date of service: 05/03/21 Principal diagnosis: Acute coronary syndrome Interval history: Patient resting comfortably in bed stating that they feel much better with no co mplaints Sinus 60s with bradycardia into 50s on monitor Objective Last Vital Signs Temp 97.5 F L 05/03/21 08:17 Pulse 57 L 05/03/21 09:04 Resp 16 05/03/21 08:31 BP 118/77 05/03/21 09:04 Pulse Ox 97 05/03/21 08:31 - Physical Examination General: No Apparent Distress HEENT: Positive: PERRL Neck: Positive: trachea midline Cardiac: Positive: Reg Rate and Rhythm, S1/S2 Lungs: Positive: Normal Breath Sounds Neuro: Positive: Grossly Intact Abdomen: Positive: Soft, Active Bowel Sounds Skin: Positive: Other (wound site clean, dry, no bleeding or hematoma). Negative: Rash, Suspicious Lesions, Ulceration Extremities: Present: upper extr. pulses, lower extr. pulses. Absent: edema - Imaging and Cardiology EKG: report reviewed (Sinus rhythm no acute ST-T wave changes) Echo: report reviewed Cardiac cath: report reviewed - Telemetry EKG Rhythm: Sinus Rhythm - EKG Sinus rhythms and dysrhythmias: sinus rhythm AV and intraventricular conduction: right bundle branch block
--- NOTE | 2021-05-03 18:11 | Electrocardiograph Report ---
[facility] Test Date: 2021-05-03 Test Time: 07:56:03 Pat Name: ANGEL LUIS LITTLE Department: Room: A462 1 Gender: M Area Intelligence Technician: JAMIL : 1965 Requested By: ADDIS JONES Order Number: [id number] Reading MD: Rosey Kothari Measurements Intervals [place] Rate: 49 P: 17 AR: 114 QRS: -25 QRSD: 158 T: -36 QT: 478 QTc: 433 Interpretive Statements Sinus bradycardia Right bundle branch block Compared to ECG 05/01/2021 15:01:39 No significant change Electronically Signed On 05-03-2021 18:11:41 EDT by Rosey Kothari
== END 2021-05-03 13:44 | disposition home or self-care (01) | DRG 246 ==
LOC: ED 11:55 → 4A 13:33 → OBSVTOIN 05-02 12:41
PROVIDERS: ADMIT Internal Medicine; ATTEND Internal Medicine
PROC: 4A023N7 Measurement of Cardiac Sampling and Pressure, Left Heart, Percutaneous Approach (ICD-10-PCS; principal; 2021-05-02)
PROC: 027034Z Dilation of Coronary Artery, One Artery with Drug-eluting Intraluminal Device, Percutaneous Approach (ICD-10-PCS; 2021-05-02)
PROC: B2111ZZ Fluoroscopy of Multiple Coronary Arteries using Low Osmolar Contrast (ICD-10-PCS; 2021-05-02)
PROC: B2151ZZ Fluoroscopy of Left Heart using Low Osmolar Contrast (ICD-10-PCS; 2021-05-02)
DX: I24.9 Acute ischemic heart disease, unspecified (principal); I50.31 Acute diastolic (congestive) heart failure; E87.1 Hypo-osmolality and hyponatremia; I45.10 Unspecified right bundle-branch block; E78.00 Pure hypercholesterolemia, unspecified; I10 Essential (primary) hypertension; F17.210 Nicotine dependence, cigarettes, uncomplicated; J45.909 Unspecified asthma, uncomplicated; D75.1 Secondary polycythemia; E78.2 Mixed hyperlipidemia; I25.110 Atherosclerotic heart disease of native coronary artery with unstable angina pectoris; I25.2 Old myocardial infarction; Z95.1 Presence of aortocoronary bypass graft; Z79.899 Other long term (current) drug therapy; Z79.891 Long term (current) use of opiate analgesic; Z79.01 Long term (current) use of anticoagulants; Z88.0 Allergy status to penicillin; Z79.82 Long term (current) use of aspirin; Z98.84 Bariatric surgery status; Z82.49 Family history of ischemic heart disease and other diseases of the circulatory system
CPT/HCPCS: 36415; 71046; 80048; 80053; 80061; 82550; 82962; 83036; 83735; 84484; 85025; 85027; 85379; 85610; 85730; 92928; 92978; 93005; 93306; 93458; 99291; 99406; G0378; C1725; C1753; C1769; C1874; C1887; C1894; C9600; J1170; J1644; J2250; J2270; J3010; J7030; J7040; Q9967

== ENCOUNTER 2021-05-03 19:47 | Emergency (ER) | payer OTHER ==
[2021-05-03] MEDS ORDERED: ASPIRIN 325 MG TAB PO ONE (20:15)
[2021-05-03 20:38] LABS: Basophils # (Auto) 0.1 K/mm3 (0.0-0.1); Basophils % (Auto) 0.9 % (0.0-1.8); Eosinophils # (Auto) 0.5 K/mm3 (0.0-0.4); Eosinophils % (Auto) 6.2 % (0.0-4.3); Hematocrit 43.8 % (35.5-45.6); Hemoglobin 15.6 gm/dl (11.8-15.2); Lymphocytes # (Auto) 2.3 K/mm3 (1.2-5.4); Lymphocytes % (Auto) 29.4 % (13.4-35.0); Mean Corpuscular HGB Conc 36 % (32-34); Mean Corpuscular Volume 94 fl (84-94); Monocytes # (Auto) 0.5 K/mm3 (0.0-0.8); Monocytes % (Auto) 6.3 % (0.0-7.3); Platelet Count 247 K/mm3 (140-440); Red Blood Count 4.67 M/mm3 (3.65-5.03); Red Cell Distribution Width 13.2 % (13.2-15.2)
[2021-05-03 20:53] LABS: Alanine Aminotransferase 14 units/L (7-56); Albumin 4.1 g/dL (3.9-5); BUN/Creatinine Ratio 19; Blood Urea Nitrogen 17 mg/dL (9-20); Calcium 9.7 mg/dL (8.4-10.2); Hemolysis Index 12
--- NOTE | 2021-05-03 20:55 | XRay Report ---
CHEST 2 VIEWS INDICATION: L sided CP, stent placed 05/02/2021. COMPARISON: 04/29/2021 FINDINGS: SUPPORT DEVICES: None. HEART: Within normal limits. LUNGS/PLEURA: No acute air space or interstitial disease. No pneumothorax. ADDITIONAL FINDINGS: None. IMPRESSION: 1. No acute findings. Signer Name: Herberth Felipe MD Signed: 05/03/2021 8:50 PM Workstation Name: [id number]
--- NOTE | 2021-05-04 05:50 | Event Note ---
Date: 05/04/21 The patient was evaluated in the emergency department for symptoms described in the history of present illness. He/she was evaluated in the context of the global COVID-19 pandemic, which necessitated consideration that the patient might be at risk for infection with the virus that causes COVID-19. Institutional protocols and algorithms that pertain to the evaluation of patients at risk for COVID-19 are in a state of rapid change based on information released by regulatory bodies including the CDC and federal and state organizations. These policies and algorithms were followed during the patient's care in the emergency department. Please note that these policies, procedures and recommendations changed on a rapid basis. Patient is a 55-year-old gentleman, recently admitted to this hospital for acute coronary syndrome. He had a stent deployed on May 02. Please reference procedure note. He was discharged with dual antiplatelet therapy, which he he has reportedly been compliant with. He went home, and then stated that yesterday, at around 5 or 6:00 PM, developed nontraumatic left-sided shoulder pain, associated with high blood pressure, without central chest pain, vomiting, diaphoresis or shortness of breath. Later on, he developed right-sided shoulder pressure, which has since resolved. The patient has been pain-free for approximately 10 hours. He states he is not having any chest pain at this time. EKG is unchanged x2. Troponin is negative x2. 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 Newman. Discussed history, physical, laboratory studies and EKG findings. Patient is resting comfortably at this time, admission is not recommended, the patient can follow-up with his grain buyer later on today. Has equal pulses in the upper and lower extremities, no pulsatile abdominal mass, and unremarkable x-ray of the chest, aortic disease is unlikely. Not currently tachycardic, tachypneic or hypoxic, low risk by Wells criteria, pulmonary embolism is unlikely. Vital Signs 05/03/21 05/03/21 05/04/21 20:02 20:15 04:42 Pulse Rate 90 77 Respiratory 20 16 Rate Blood Pressure 143/98 Blood Pressure 129/86 [Left] Blood Pressure 129/86 [Right] O2 Sat by Pulse 99 100 Oximetry Lab Results 05/03/21 05/03/21 05/03/21 Range/Units 20:20 20:20 23:52 WBC 7.9 (4.5-11.0) K/mm3 RBC 4.67 (3.65-5.03) M/mm3 Hgb 15.6 H (11.8-15.2) gm/dl Hct 43.8 (35.5-45.6) % MCV 94 (84-94) fl MCH 33 H (28-32) pg MCHC 36 H (32-34) % RDW 13.2 (13.2-15.2) % Plt Count 247 (140-440) K/mm3 Lymph % (Auto) 29.4 (13.4-35.0) % [place] % (Auto) 6.3 (0.0-7.3) % Eos % (Auto) 6.2 H (0.0-4.3) % Baso % (Auto) 0.9 (0.0-1.8) % Lymph # (Auto) 2.3 (1.2-5.4) K/mm3 [place] # (Auto) 0.5 (0.0-0.8) K/mm3 Eos # (Auto) 0.5 H (0.0-0.4) K/mm3 Baso # (Auto) 0.1 (0.0-0.1) K/mm3 Seg Neutrophils % 57.2 (40.0-70.0) % Seg Neutrophils # 4.5 (1.8-7.7) K/mm3 Sodium 141 (137-145) mmol/L Potassium 4.5 (3.6-5.0) mmol/L Chloride 102.7 (98-107) mmol/L Carbon Dioxide 29 (22-30) mmol/L Anion Gap 14 mmol/L BUN 17 (9-20) mg/dL Creatinine 0.9 (0.8-1.3) mg/dL Estimated GFR > 60 ml/min BUN/Creatinine Ratio 19 % Glucose 96 (75-100) mg/dL Calcium 9.7 (8.4-10.2) mg/dL Total Bilirubin 0.20 (0.1-1.2) mg/dL AST 14 (5-40) units/L ALT 14 (7-56) units/L Alkaline Phosphatase 142 H (35-129) units/L Troponin T 0.021 0.017 (0.00-0.029) ng/mL Total Protein 6.8 (6.3-8.2) g/dL Albumin 4.1 (3.9-5) g/dL Albumin/Globulin Ratio 1.5 %
--- NOTE | 2021-05-04 06:25 | Emergency Department Report ---
HPI - General Chief Complaint: Chest Pain Time Seen by Provider: 05/04/21 06:08 - HPI HPI: 55-year-old male presents to the emergency department last night with a complaint of developing some left shoulder pain with hypertension yesterday afternoon. The patient just had a stent placed in the RCI on 05/[address] Herzog. Patient denies any trauma or injury to the affected left shoulder. He denies any radiation to the chest, any shortness of breath, lower extremity swelling, nausea, vomiting, back pain or diaphoresis. The patient was discharged home on dual platelet therapy which he has been compliant with. The patient was seen and screened by my colleague in his note is in the chart. At the time of my examination, the patient is sleeping although easily arousable, and says that the shoulder pain has completely resolved. Patient does have a past medical history of hypertension, asthma, and coronary artery disease with previous AK and stent in 2011. ED Past Medical Hx - Past Medical History Previous Medical History?: Yes Hx Hypertension: Yes Hx Heart Attack/AMI: Yes (2011,) Hx Congestive Heart Failure: No Hx Diabetes: No Hx Asthma: Yes Hx COPD: No Hx HIV: No Additional medical history: CAD - Surgical History Hx Coronary Stent: Yes (X 2 2011, stent x1-05/02/2021) Hx Open Heart Surgery: Yes Additional Surgical History: DOUBLE HERNIA SURGERY. ROBOTIC BYPASS SURGERY. TONSILLECTOMY - Social History Smoking Status: Never Smoker Substance Use Type: None - Medications Home Medications: Home Medications Medication Instructions Recorded Confirmed Last Taken Type Aspirin [Aspirin BABY CHEW TAB] 81 mg PO QDAY tab.chew 01/29/15 04/29/21 04/29/21 Rx Metoprolol Tartrate [Lopressor] 25 mg PO BID 04/29/21 04/29/21 04/29/21 History AtorvaSTATin [Lipitor] 40 mg PO QHS #30 tab 05/03/21 Unknown Rx Clopidogrel [Plavix] 75 mg PO QDAY #30 tablet 05/03/21 Unknown Rx ED Review of Systems ROS: Stated complaint: CHEST PAIN, HIGH BP Other details as noted in HPI Comment: All other systems reviewed and negative Constitutional: denies: chills, fever Eyes: denies: eye pain, vision change ENT: denies: ear pain, throat pain Respiratory: denies: cough, shortness of breath Cardiovascular: denies: chest pain, palpitations Gastrointestinal: denies: abdominal pain, vomiting Genitourinary: denies: dysuria, discharge Musculoskeletal: arthralgia. denies: back pain Skin: denies: rash, lesions Neurological: denies: headache, weakness Physical Exam - Physical Exam Vital Signs: Vital Signs 05/03/21 05/03/21 05/04/21 20:02 20:15 04:42 Pulse Rate 90 77 Respiratory 20 16 Rate Blood Pressure 143/98 Blood Pressure 129/86 [Left] Blood Pressure 129/86 [Right] O2 Sat by Pulse 99 100 Oximetry Physical Exam: GENERAL: The patient is well-developed well-nourished. HENT: Normocephalic. Atraumatic. Patient has moist mucous membranes. EYES: Extraocular motions are intact. NECK: Supple. Trachea is midline. CHEST/LUNGS: Clear to auscultation. There is no respiratory distress noted. HEART/CARDIOVASCULAR: Regular. There is no tachycardia. There is no murmur. ABDOMEN: Abdomen is soft, nontender. Patient has normal bowel sounds. SKIN: Skin is warm and dry. NEURO: The patient is awake, alert, and oriented. The patient is cooperative. The patient has no focal neurologic deficits. Normal speech. MUSCULOSKELETAL: There is no tenderness or deformity. There is no limitation range of motion. Radial pulse +2/4 and capillary refill less than 2 seconds to the affected left upper extremity. ED Course Vital Signs 05/03/21 05/03/21 05/04/21 20:02 20:15 04:42 Pulse Rate 90 77 Respiratory 20 16 Rate Blood Pressure 143/98 Blood Pressure 129/86 [Left] Blood Pressure 129/86 [Right] O2 Sat by Pulse 99 100 Oximetry - Consultations Consultation #1: 05/04/21 06:25 My colleague had spoken to Dr. Newman earlier today at around 0515. After getting the last troponin, which came back slightly elevated at 0.031, I once again spoke with Dr. Newman regarding the patient's presentation and ED course. Since the patient is asymptomatic, has had unchanged EKGs, and the third troponin is only slightly above normal after having a heart catheterization, he feels the patient is safe for discharge home but should follow-up outpatient with Dr. Herzog today in the office. ED Medical Decision Making - Lab Data Result diagrams: 05/03/21 20:20 05/03/21 20:20 Lab Results 05/03/21 05/03/21 05/03/21 Range/Units 20:20 20:20 23:52 WBC 7.9 (4.5-11.0) K/mm3 RBC 4.67 (3.65-5.03) M/mm3 Hgb 15.6 H (11.8-15.2) gm/dl Hct 43.8 (35.5-45.6) % MCV 94 (84-94) fl MCH 33 H (28-32) pg MCHC 36 H (32-34) % RDW 13.2 (13.2-15.2) % Plt Count 247 (140-440) K/mm3 Lymph % (Auto) 29.4 (13.4-35.0) % [place] % (Auto) 6.3 (0.0-7.3) % Eos % (Auto) 6.2 H (0.0-4.3) % Baso % (Auto) 0.9 (0.0-1.8) % Lymph # (Auto) 2.3 (1.2-5.4) K/mm3 [place] # (Auto) 0.5 (0.0-0.8) K/mm3 Eos # (Auto) 0.5 H (0.0-0.4) K/mm3 Baso # (Auto) 0.1 (0.0-0.1) K/mm3 Seg Neutrophils % 57.2 (40.0-70.0) % Seg Neutrophils # 4.5 (1.8-7.7) K/mm3 Sodium 141 (137-145) mmol/L Potassium 4.5 (3.6-5.0) mmol/L Chloride 102.7 (98-107) mmol/L Carbon Dioxide 29 (22-30) mmol/L Anion Gap 14 mmol/L BUN 17 (9-20) mg/dL Creatinine 0.9 (0.8-1.3) mg/dL Estimated GFR > 60 ml/min BUN/Creatinine Ratio 19 % Glucose 96 (75-100) mg/dL Calcium 9.7 (8.4-10.2) mg/dL Total Bilirubin 0.20 (0.1-1.2) mg/dL AST 14 (5-40) units/L ALT 14 (7-56) units/L Alkaline Phosphatase 142 H (35-129) units/L Troponin T 0.021 0.017 (0.00-0.029) ng/mL Total Protein 6.8 (6.3-8.2) g/dL Albumin 4.1 (3.9-5) g/dL Albumin/Globulin Ratio 1.5 % // Range/Units 04:13 WBC (4.5-11.0) K/mm3 RBC (3.65-5.03) M/mm3 Hgb (11.8-15.2) gm/dl Hct (35.5-45.6) % MCV (84-94) fl MCH (28-32) pg MCHC (32-34) % RDW (13.2-15.2) % Plt Count (140-440) K/mm3 Lymph % (Auto) (13.4-35.0) % [place] % (Auto) (0.0-7.3) % Eos % (Auto) (0.0-4.3) % Baso % (Auto) (0.0-1.8) % Lymph # (Auto) (1.2-5.4) K/mm3 [place] # (Auto) (0.0-0.8) K/mm3 Eos # (Auto) (0.0-0.4) K/mm3 Baso # (Auto) (0.0-0.1) K/mm3 Seg Neutrophils % (40.0-70.0) % Seg Neutrophils # (1.8-7.7) K/mm3 Sodium (137-145) mmol/L Potassium (3.6-5.0) mmol/L Chloride (98-107) mmol/L Carbon Dioxide (22-30) mmol/L Anion Gap mmol/L BUN (9-20) mg/dL Creatinine (0.8-1.3) mg/dL Estimated GFR ml/min BUN/Creatinine Ratio % Glucose (75-100) mg/dL Calcium (8.4-10.2) mg/dL Total Bilirubin (0.1-1.2) mg/dL AST (5-40) units/L ALT (7-56) units/L Alkaline Phosphatase (35-129) units/L Troponin T 0.031 H D (0.00-0.029) ng/mL Total Protein (6.3-8.2) g/dL Albumin (3.9-5) g/dL Albumin/Globulin Ratio % - EKG Data -: EKG Interpreted by Me EKG shows normal: sinus rhythm, axis, intervals, QRS complexes (Right bundle branch block, Q waves to the inferior leads), ST-T waves Rate: normal - EKG Data When compared to previous EKG there are: no significant change Interpretation: unchanged when compared t (05/03/21) - Radiology Data Radiology results: image reviewed interpreted by me: Chest x-ray does not show any acute process. There are no pleural effusions, obvious pneumonia and there is no pneumothorax. No widened mediastinum. - Medical Decision Making This patient presented last night with complaint of some left shoulder pain that has resolved by the time of my initial examination. No chest pain. The patient just had a cardiac cath done on 05/02 with a stent placed in the RCA. EKG does not show morphology consistent with ST elevation myocardial infarction and is unchanged from previous. Chest x-ray does not show any pneumonia, pneumothorax, pleural effusions, widened mediastinum, or any other acute process. Patient's labs have been mostly unremarkable including CBC, metabolic panel and negative troponins x2. The third troponin came back slightly elevated at 0.031, but this is most likely secondary to his recent cardiac catheterization and not any new ACS. This was all discussed with the ship/rec/doc control plastering contractor, Dr. Newman, who agrees the plan for outpatient follow-up today with Dr. Herzog. Vital signs reassuring throughout his ED course including being afebrile. The patient understands and agrees to the plan. Critical Care Time: No Critical care attestation.: If time is entered above; I have spent that time in minutes in the direct care of this critically ill patient, excluding procedure time. ED Disposition Clinical Impression: Postprocedural pain of extremity following cardiac catheterization Left shoulder pain Qualifiers: Chronicity: unspecified Qualified Code(s): M25.512 - Pain in left shoulder Disposition: DC-01 TO HOME OR SELFCARE Is pt being admited?: No Condition: Stable Instructions: Coronary Artery Disease, Male, Shoulder Pain Additional Instructions: Please follow-up with Dr. Herzog at [facility] cardiology sometime today. Please call this morning to make an appointment or show up as a walk-in. Take all your medications as prescribed. Return to the emergency department with any worsening of your symptoms, new or concerning symptoms not addressed during this current emergency department visit, or with any acute distress. Referrals: HARSHIL HERZOG MD [Primary Care Provider] - 05/04/21 (Call to make an appointment for today or go as a walk-in) Time of Disposition: 06:32
[2021-05-04 06:44] VITALS: BP 120/72
--- NOTE | 2021-05-05 10:55 | Electrocardiograph Report ---
[facility] Test Date: 2021-05-03 Test Time: 19:56:15 Pat Name: ANGEL LUIS LITTLE Department: Room: Gender: M [employer]: : 1965 Requested By: NICK JOHNSON Order Number: [id number] Reading MD: Rosey Kothari Measurements Intervals [place] Rate: 86 P: 71 MT: 137 QRS: -56 QRSD: 151 T: 18 QT: 403 QTc: 483 Interpretive Statements Sinus rhythm IVCD, consider RBBB Inferior infarct, old Compared to ECG 05/03/2021 07:56:03 Sinus rate has increased Electronically Signed On 05-05-2021 10:54:50 EDT by Rosey Kothari
--- NOTE | 2021-05-05 10:57 | Electrocardiograph Report ---
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
== END 2021-05-04 06:52 | disposition home or self-care (01) ==
LOC: ED 19:47
DX: M25.512 Pain in left shoulder (principal); T82.847A Pain due to cardiac prosthetic devices, implants and grafts, initial encounter; I10 Essential (primary) hypertension; J45.909 Unspecified asthma, uncomplicated
CPT/HCPCS: 36415; 71046; 80053; 84484; 85025; 93005; 99284